=== PATIENT | male | born 1985 | race Two or more races ===

== ENCOUNTER 2021-02-24 14:59 | Emergency (ER) | payer OTHER, SELFPAY ==
[2021-02-24 15:12] VITALS: BP 133/91; PULSE 101; RESP 18; TEMP 36.5; O2SAT 97; BMI 31.0
--- NOTE | 2021-02-24 16:49 | ED.GENADULT ---
HPI - General Adult General Chief complaint: General Medical Stated complaint: stung by a bee Time Seen by Provider: 02/24/21 16:49 Source: patient Mode of arrival: ambulatory Limitations: no limitations History of Present Illness HPI narrative: 35-year-old male with nonsignificant past medical history presents the emergency department after bee sting to the right lower extremity with increased pain and swelling. Patient states he has been stung by bees many times but never had this reaction. States he woke up with increased swelling and leakage from sting site itself. Also admits to increased redness going up the leg. Denies fevers or chills denies chest pain or shortness of breath. Is an [employer] worker and was unable to go to work today. Related Data Previous Rx's Medication Instructions Recorded cephalexin 500 mg PO QID #40 cap 02/24/21 prednisone 60 mg PO DAILY 5 Days #15 tab 02/24/21 prednisone 60 mg PO DAILY 5 Days #15 tab 02/24/21 Allergies Allergy/AdvReac Type Severity Reaction Status Date / Time No Known Allergies Allergy Verified 02/24/21 15:12 Review of Systems Review of Systems: Constitutional : No Weight loss, No Fever, No Chills, No Night Sweats, No Fatigue, No Malaise ENT/Mouth : No Hearing loss, No Ear Pain, No Nasal Congestion, No Sinus Pain, No Hoarseness, No sore throat, No Rhinorrhea, No Swallowing Difficulty Eyes: No Eye Pain, No Swelling, No Redness, No Foreign Body, No Discharge, No Vision Changes Cardiovascular : No Chest Pain, No SOB, No Dyspnea on Exertion, No Orthopnea, No Edema, No Palpitations Respiratory : No Cough, No Sputum, No Wheezing, No Smoke Exposure, No Dyspnea Gastrointestinal : No Nausea, No Vomiting, No Diarrhea, No Constipation, No abdominal Pain, No Hematochezia, No Melena Genitourinary : no irregular bleeding, No Dysuria, No Urinary Frequency, No Hematuria, No Urinary Incontinence, No Urgency, No Flank Pain, No Urinary Flow Changes, No Hesitancy Musculoskeletal : No joint pain, No Myalgias, + Joint Swelling, + rash to left and edema Skin : No Skin Lesions Neuro : No Weakness, No Numbness, No Paresthesias, No Loss of Consciousness, No Dizziness, No Headache Psych : No Anxiety/Panic, No Depression, No SI/HI/AH/VH, No Social Issues, Heme/Lymph: No Bruising, No Bleeding,No Lymphadenopathy Endocrine : No Polyuria, No Polydipsia, No Temperature Intolerance [facility] Past Medical History Attestation statement: The following information was validated with the patient. Source: old records reviewed and obtained from family Medical History (Updated 02/24/21 @ 16:54 by MARY LOU Mendieta) GERD (gastroesophageal reflux disease) IBS (irritable bowel syndrome) Migraines Tachycardia Social History Social History Advance Directives: No Advance Directives Information Provided: No Physical Exam Vital Signs: Vital Signs: Last Vital Signs Temp 97.7 F 02/24/21 15:12 Pulse 101 H 02/24/21 15:12 Resp 18 02/24/21 15:12 BP 133/91 H 02/24/21 15:12 Pulse Ox 97 02/24/21 15:12 Body Mass Index 31.0 vital signs have been reviewed as normal and appeared to be correct. Blood pressure normal. Heart rate normal. Respiration rate normal. Temperature normal. Oxygen saturation normal. Appearance: Alert. Oriented X3. No acute distress. Head: Normal external exam. Normocephalic. Atraumatic. No Fish signs noted. No raccoon eyes noted Eyes: Conjunctiva and sclera normal. ENT: EAC normal. Moist mucous membranes. No drooling noted. No muffled voice noted. Neck: Normal inspection. Neck supple. FROM. No meningeal signs. CVS: Pulses normal throughout. Respiratory: No respiratory distress. Painless inspiration. No accessory muscle usage noted Abdomen: No visible injury noted. Back: Full range of motion noted. Skin: Skin warm and dry. Normal skin color. Normal skin turgor. Extremities: Extremities exhibit normal range of motion. Patient with edema noted from the right foot extending to the right posterior calf. Mild upward streaking erythema mild serosanguineous fluid coming from bee sting wound. Good distal pulses good capillary refill limb neurovascularly intact otherwise Neuro: Oriented X 3. No motor deficit. No sensory deficit. Medical Decision Making MDM Narrative Medical decision making narrative: patient's vital signs are stable and he is afebrile. Patient presenting to the ED after bee sting with increased redness and swelling to the affected limb. Signs of early cellulitis does exist no acute concern for DVT patient with mild serosanguineous fluid coming from bee sting wound itself likely due to the gross edema. Patient's limb is otherwise neurovascularly intact. Will prescribe steroids to help with inflammation as well as Keflex to help with potential early infection advised close outpatient follow-up. No acute concern for anaphylactic reaction at this time. Discharge Plan Discharge Clinical Impression: Accidental bee sting Cellulitis Qualifiers: Site of cellulitis: extremity Site of cellulitis of extremity: lower extremity Laterality: right Qualified Code(s): L03.115 - Cellulitis of right lower limb Patient Disposition: Home, Self-Care Instructions: Cellulitis (ED) Additional Instructions: You were seen in the ED after a bee sting with early signs of infection please take steroids and antibiotics as directed follow-up with your doctor symptoms get worse or return to the ED if you feel like they are getting significantly worse without improvement or if you develop a fever or shortness of breath. Prescriptions: New prednisone 20 mg tablet 60 mg PO DAILY 5 Days Qty: 15 RF: 0 cephalexin 500 mg capsule 500 mg PO QID Qty: 40 RF: 0 prednisone 20 mg tablet 60 mg PO DAILY 5 Days Qty: 15 RF: 0 Referrals: Mikel Rodriguez MD [Primary Care Provider] - 5 days Stand Alone Forms: Work/School Release Interventions: ED Discharge Assessment Last Done: 02/24/21 17:12 Discharge Date/Time: 02/24/21 17:12 Print Language: Algerian
== END 2021-02-24 17:12 | disposition home or self-care (01) ==
PROVIDERS: Emergency Provider Emergency Medicine; PCP Internal Medicine
DX: L03.115 Cellulitis of right lower limb (principal)
CPT/HCPCS: 99283

== ENCOUNTER 2021-05-11 10:01 | Emergency (ER) | payer OTHER, SELFPAY ==
[2021-05-11 10:14] VITALS: BP 141/79; PULSE 107; RESP 19; TEMP 36.6; O2SAT 97; BMI 31.6
--- NOTE | 2021-05-11 11:17 | ED.GENADULT ---
HPI - General Adult General Chief complaint: General Medical Stated complaint: swollen sore throat Time Seen by Provider: 05/11/21 11:17 Source: patient Mode of arrival: ambulatory Limitations: no limitations History of Present Illness HPI narrative: 35-year-old male who woke up this morning with a swollen sore throat. Patient is concerned because he noticed that his uvula feels weird. His looked in his mouth, and said he was very swollen in his throat. Patient has not had any other symptoms, no fevers, no cough, no runny nose, no ear pain, no myalgias, also patient has not had any sick contacts, he is vaccinated for COVID. He is able to swallow, he is able to eat, he ate cereal this morning. States there is no pain with swallowing, but he feels that his uvula is going forward when he swallows and it feels weird. Patient has a history of IBS, migraines, GERD, states that he has tachycardia and his heart rate is normally in the 90s. Onset (ago): hour(s) (4) Location: mouth Radiation: non-radiation Severity: moderate Related Data Previous Rx's Medication Instructions Recorded cephalexin 500 mg capsule 500 mg PO QID #40 cap 02/24/21 prednisone 20 mg tablet 60 mg PO DAILY 5 Days #15 tab 02/24/21 prednisone 20 mg tablet 60 mg PO DAILY 5 Days #15 tab 02/24/21 ibuprofen 800 mg tablet 800 mg PO Q8H 5 Days #15 tab 05/11/21 penicillin V potassium 500 mg 500 mg PO TID 10 Days #30 tab 05/11/21 tablet Allergies Allergy/AdvReac Type Severity Reaction Status Date / Time No Known Allergies Allergy Verified 02/24/21 15:12 Review of Systems Constitutional: Constitutional: Denies body ache(s), Denies chills, Denies fatigue, Denies fever(s), Denies headache(s), Denies malaise and Denies weakness Eyes: Eyes: Denies diplopia ENT: Denies vertigo, Denies dizziness, Denies ear discharge, Denies otalgia, Denies facial pain, Denies headache(s), Denies mouth pain, Denies nasal congestion, Denies nasal discharge, Denies post nasal drip, Denies sinus pain, Reports sore throat, Denies throat swelling and Denies tongue swelling Cardiovascular: Cardiovascular: Denies chest pain, Denies syncope, Denies leg edema, Denies lightheadedness, Denies Loss of Consciousness, Denies palpitations and Denies dyspnea Respiratory: Respiratory: Denies chest congestion, Denies cough and Denies dyspnea Gastrointestinal: Gastrointestinal: Denies abdominal pain, Denies hematochezia, Denies constipation, Denies diarrhea and Denies vomiting Musculoskeletal: Musculoskeletal: Reports no additional musculoskeletal complaints Neurologic: Denies confusion, Denies vertigo, Denies dizziness, Denies syncope, Denies headache(s) and Denies weakness Psychiatric: Psychiatric: Denies anxiety, Denies confusion and Denies depression Endocrine: Endocrine: Denies fatigue and Denies palpitations Allergic/Immunologic: Allergic/Immunologic: Denies throat swelling and Denies tongue swelling PMFSH Past Medical History Medical History GERD (gastroesophageal reflux disease) IBS (irritable bowel syndrome) Migraines Tachycardia Social History Social History Advance Directives: No Physical Exam Vital Signs: Vital Signs: Last Vital Signs Temp 98 F 05/11/21 10:14 Pulse 107 H 05/11/21 10:14 Resp 19 05/11/21 10:14 BP 141/79 H 05/11/21 10:14 Pulse Ox 97 05/11/21 10:14 Body Mass Index 31.6 Const: General: No confusion Nutritional Appearance: well nourished Orientation/consciousness: No confusion Limitations: no limitations HENMT: Head: Yes normal to inspection, Yes normocephalic and Yes atraumatic Ears: hearing grossly normal bilaterally, TM's normal bilaterally and EAC's normal General nose exam: Normal external nose present Face and sinus: Yes normal facial exam and Yes sinuses nontender Mouth: Normal oral and palatal mucosa present and tongue normal Throat: Yes uvula midline, Yes uvular edema and Yes other (exudate posterior pharynx and uvula) Eyes: Conjunctivae: conjunctivae normal Pupils: Equal, round and reactive pupils present EOM: EOMs intact bilaterally Neck: Neck: Yes full ROM, Yes no lymphadenopathy and Yes supple Resp: Effort & Inspection: normal respiratory effort and able to speak in complete sentences Auscultation: clear to auscultation bilaterally, no crackles, no rales, no rhonchi and no wheezes Cardio: Rate: tachycardic Rhythm: regular rhythm Heart sounds: S1 normal heart sound present and S2 normal heart sound present Skin: General skin exam: no rashes or lesions noted Neuro: General: No confusion Cranial nerves: Yes Equal, round and reactive pupils present Extrem: General: Yes normal to inspection and Yes full ROM Psych: Appearance: grossly normal Affect: normal affect Attitude: cooperative Thought process: Normal thought process present Course Course Course Narrative: 35-year-old male who woke up with sore throat this morning. On exam, patient is afebrile mildly tachycardic which is his baseline, patient has an erythematous posterior pharynx with exudate and erythema and swelling of his uvula. Will get strep swab, re-evaluate Reevaluation(s) Reevaluation #1: Strep positive. Will treat with penicillin, ibuprofen, saltwater gargles. Follow up with primary care provider. Medical Decision Making Lab Data Labs: Lab Results 05/11/21 Range/Units 11:41 S. pyogenes GrpA TED Positive A (Negative) Discharge Plan Discharge Clinical Impression: Strep pharyngitis Patient Disposition: Home, Self-Care Instructions: Strep Throat (ED) Additional Instructions: Your strep positive today, your contagious until you have been on antibiotics for 2 days, you may return to work on Wednesday. I have prescribed penicillin and ibuprofen to your pharmacy. Please also do saltwater gargles. Take a tsp of salt and put in a cup of warm water, and gargle and spit out the salt water. Please do this 4 times a day for the next 3 days this will really help. Please return to emergency room for any new or concerning symptoms. Prescriptions: New penicillin V potassium 500 mg tablet 500 mg PO TID 10 Days Qty: 30 RF: 0 ibuprofen 800 mg tablet 800 mg PO Q8H 5 Days Qty: 15 RF: 0 No Action prednisone 20 mg tablet 60 mg PO DAILY 5 Days Qty: 15 RF: 0 cephalexin 500 mg capsule 500 mg PO QID Qty: 40 RF: 0 prednisone 20 mg tablet 60 mg PO DAILY 5 Days Qty: 15 RF: 0 Stand Alone Forms: Work/School Release
[2021-05-11 11:52] LABS: IDNOW Serial# 9DD0AD1C; Strep A Nucleic Acid Positive (Negative)
[2021-05-11 12:11] LABS: COVID-19 Test Negative (Negative)
== END 2021-05-11 12:20 | disposition home or self-care (01) ==
PROVIDERS: Emergency Provider Emergency Medicine Emergency Medical Services; PCP Internal Medicine
DX: J02.0 Streptococcal pharyngitis (principal); Z20.822 Contact with and (suspected) exposure to COVID-19; Z79.899 Other long term (current) drug therapy
CPT/HCPCS: 36415; 87635; 87651; 99283

== ENCOUNTER 2021-10-23 11:23 | Outpatient (REF) | payer OTHER, SELFPAY ==
--- NOTE | ~2021-10-23 | XR_ITS ---
EXAMINATION: XR CERVICAL SPINE CLINICAL INFORMATION: Neck pain COMPARISON: None TECHNIQUE: 4 views of the cervical spine were obtained. Evaluation of C7-T1 is limited by overlapping soft tissue. FINDINGS: There are no prevertebral soft tissue or bony abnormalities demonstrated. No compression fractures or subluxations are identified. Alignment is maintained at the atlanto-axial articulation. The disc spaces are preserved. No endplate changes are seen. The prevertebral soft tissues are normal. The foramina are patent. XR/XR cervical spine 2V IMPRESSION: Unremarkable examination.
== END 2021-10-23 11:24 | disposition home or self-care (01) ==
LOC: HO.XRAY 11:23
PROVIDERS: PCP Internal Medicine; Visit Provider Psychiatry & Neurology Neurology
DX: M54.2 Cervicalgia (principal)
CPT/HCPCS: 72040

== ENCOUNTER 2022-10-02 13:29 | Outpatient (REF) | payer OTHER, SELFPAY ==
--- NOTE | ~2022-10-02 | MR_ITS ---
EXAMINATION: MR BRAIN WITHOUT CONTRAST CLINICAL INFORMATION: New persistent daily headache. COMPARISON: None available. TECHNIQUE: Multiplanar, multisequence imaging of the brain was performed without intravenous contrast. FINDINGS: There is no acute infarction, mass, hemorrhage, or extra-axial collection. The ventricles, sulci, and basilar cisterns are normal in size and configuration. The midline structures appear normal. The cerebellar tonsils terminate normally above the foramen magnum. The flow voids of the major intracranial arteries appear intact. The bones and extracranial soft tissues are unremarkable. There is moderate paranasal sinus mucosal thickening without fluid levels. Mastoids are clear. MR/MR head/brain wo con IMPRESSION: No acute infarct, mass lesion, intracranial hemorrhage, or evidence of hydrocephalus. Moderate paranasal sinus mucosal thickening without fluid levels.
== END 2022-10-02 13:30 | disposition home or self-care (01) ==
LOC: HO.MRI 13:29
PROVIDERS: PCP Psychiatry & Neurology Neurology; Visit Provider Psychiatry & Neurology Neurology
DX: G44.52 New daily persistent headache (NDPH) (principal)
CPT/HCPCS: 70551

== ENCOUNTER 2023-05-20 08:45 | Outpatient (AMB) | payer OTHER, SELFPAY ==
--- NOTE | 2023-05-20 08:52 | MHC.OFFVIS ---
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 States his right is worse. States symptoms come and go, has constant pain due to numbness. Reports he at times drops items due to hand weakness. This affects him at work. Patient started to use a brace as of 2 weeks ago with little relieve. No EMG done. Allergies No Known Allergies Allergy (Verified 05/20/23 08:53) Medication List - Last Reconciled 05/20/23 by Hilda Moses MD amitriptyline 100 mg PO BEDTIME gabapentin 300 mg PO DAILY ibuprofen 800 mg PO Q8H 5 days metoprolol succinate ER 50 mg PO DAILY naproxen mg PO omeprazole 20 mg PO DAILY promethazine mg PO rizatriptan mg PO HPI HPI Comments History of Present Illness Details Right numb/tingling certain positions, especially on fingertips. Pain onwrist nowadays, initially more on the fingers and palm. Wrist splints at help. Left side not as painful right. Not associated with neck pain. Dropping things. 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 No atrophy noted. The other day started having sharp pain on elbow and forearm, right. 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 MSK: Inspection reveals appropriate head and neck positioning. No pain with palpation over the neck musculature. No intrinsic hand weakness noted. No atrophy noted. Jordan test negative. Carpal compression test positive right. Tinel sign negative. Strength is 5/5 in all muscle groups tested. No increased tone noted. Neurological: Neurologic examination of the upper and lower extremities was nonfocal with intact sensation, muscle stretch reflexes and without focal motor deficits . Patiño?s negative bilaterally. Gait is non-antalgic without loss of balance. Assessment & Plan Assessment & Plan (1) Hand numbness: Code(s): R20.0 - Anesthesia of skin Plan Clinically suspect Carpal Tunnel Syndrome based on symptoms and exam. Right seems to be worse than left. Continue to wear wrist splints. We will schedule for EMG to confirm. We discussed usual management which includes conservative versus surgical treatment. Assessment and plan discussed with patient, and patient was agreeable. All questions were answered thoroughly. Hilda Moses MD, MISTI Board Certified, [place] Board of Physical Medicine and Rehabilitation (ABPMR) Board Certified, [place] Board of Electrodiagnostic Medicine (ABEM) Orders: Orders NE nerve conduction velocity Today R20.0 - Anesthesia of skin NE electromyogram (EMG) Today R20.0 - Anesthesia of skin Coding Level of Care Code New Pt Level 3 (50396) Diagnoses Hand numbness R20.0
[2023-05-20 08:53] VITALS: BMI 32.2
== END 2023-05-20 09:25 | disposition home or self-care (01) ==
PROVIDERS: PCP Psychiatry & Neurology Neurology; Visit Provider Physical Medicine & Rehabilitation
DX: R20.0 Anesthesia of skin (principal)
CPT/HCPCS: 99203

== ENCOUNTER → 2023-05-20 08:45 | Outpatient (BNVA) | payer OTHER, SELFPAY | PROVIDERS: PCP Psychiatry & Neurology Neurology; Visit Provider Physical Medicine & Rehabilitation ==

== ENCOUNTER 2023-07-22 14:07 | Outpatient (REF) | payer OTHER, SELFPAY ==
--- NOTE | 2023-07-22 14:09 | EMG_ITS ---
Chief complaint: Wrist pain, tingling in fingers, right worse than left Reason for referral: Evaluate for Carpal Tunnel Syndrome Procedure done: Bilateral upper extremities NCS/EMG Precautions and/or limitations: None The limb temperature was monitored continuously and remained between 32-36 degrees C during the performance of the NCS. Nerve Conduction Studies Anti Sensory Summary Table ?Stim Site NR Onset (ms) Norm Onset (ms) Peak (ms) Norm Peak (ms) O-P Amp (?V) Norm O-P Amp Site1 Site2 Delta-0 (ms) Dist (cm) Osbaldo (m/s) Norm Osbaldo (m/s) Left Median Anti Sensory (2nd Digit) Wrist ? 2.9 3.6 <3.6 42.7 >10 Wrist 2nd Digit 2.9 14.0 48 Right Median Anti Sensory (2nd Digit) Wrist ? 3.5 4.3 <3.6 36.3 >10 Wrist 2nd Digit 3.5 14.0 40 Right Radial Anti Sensory (Thumb) Forearm ? 1.6 2.2 <3.1 25.4 Forearm Thumb 1.6 0.0 Left Ulnar Anti Sensory (5th Digit) Wrist ? 2.1 2.9 <3.7 17.3 >15.0 Wrist 5th Digit 2.1 14.0 67 Right Ulnar Anti Sensory (5th Digit) Wrist ? 2.3 2.9 <3.7 33.8 >15.0 Wrist 5th Digit 2.3 14.0 61 Motor Summary Table ?Stim Site NR Onset (ms) Norm Onset (ms) O-P Amp (mV) Norm O-P Amp iAmp (mV) Amp (1st) (%) Site1 Site2 Delta-0 (ms) Dist (cm) Osbaldo (m/s) Norm Osbaldo (m/s) Left Median Motor (Abd Poll Brev) Wrist ? 3.9 <3.9 12.1 >4.5 14.0 100.0 Elbow Wrist 4.1 21.0 51 >45 Elbow ? 8.0 10.2 12.1 84.3 Right Median Motor (Abd Poll Brev) Wrist ? 4.5 <3.9 10.8 >4.5 13.4 100.0 Elbow Wrist 4.0 21.0 53 >45 Elbow ? 8.5 8.2 10.0 75.9 Left Ulnar Motor (Abd Dig Minimi) Wrist ? 2.9 <3.0 8.9 >5 10.3 100.0 B Elbow Wrist 3.2 20.0 63 >45 B Elbow ? 6.1 8.7 10.3 97.8 A Elbow B Elbow 1.6 10.0 62 >45 A Elbow ? 7.7 8.2 9.8 92.1 Right Ulnar Motor (Abd Dig Minimi) Wrist ? 3.0 <3.0 10.0 >5 13.5 100.0 B Elbow Wrist 3.8 19.0 50 >45 B Elbow ? 6.8 10.5 13.9 105.0 A Elbow B Elbow 1.8 10.0 56 >45 A Elbow ? 8.6 10.4 14.1 104.0 Comparison Summary Table ?Stim Site NR Peak (ms) Norm Peak (ms) P-T Amp (?V) Site1 Site2 Delta-P (ms) Norm Delta (ms) Left Median/Radial Dig I Comparison (Digit 1 - 10cm) Median ? 3.2 <2.9 62.3 Median Radial 0.0 Radial ? 3.2 <2.8 58.3 EMG ?Side Muscle Nerve Root Ins Act Fibs Psw Amp Dur Poly Recrt Int Pat Comment Right 1stDorInt Ulnar C8-T1 Nml Nml Nml Nml Nml 0 Nml Complete Right FlexCarRad Median C6-7 Nml Nml Nml Nml Nml 0 Nml Complete Right Biceps Musculocut C5-6 Nml Nml Nml Nml Nml 0 Nml Complete Right Triceps Radial C6-7-8 Nml Nml Nml Nml Nml 0 Nml Complete Right Deltoid Axillary C5-6 Nml Nml Nml Nml Nml 0 Nml Complete Left 1stDorInt Ulnar C8-T1 Nml Nml Nml Nml Nml 0 Nml Complete Left FlexCarRad Median C6-7 Nml Nml Nml Nml Nml 0 Nml Complete Left Biceps Musculocut C5-6 Nml Nml Nml Nml Nml 0 Nml Complete Left Triceps Radial C6-7-8 Nml Nml Nml Nml Nml 0 Nml Complete Left Deltoid Axillary C5-6 Nml Nml Nml Nml Nml 0 Nml Complete FINDINGS: Right median motor nerve showed prolonged distal latency, normal amplitude and normal conduction velocity. Right median sensory nerve showed prolonged peak latency. All other nerves tested were within normal. Concentric needle EMG was performed in selected muscles of the bilateral upper extremities. Study did not reveal signs of electric abnormalities as shown in the table below. IMPRESSION: 1. This is an abnormal study. 2. There is electrodiagnostic evidence for right moderate-severe median neuropathy at the wrist, consistent with carpal tunnel syndrome. 3. There is no electrodiagnostic evidence for ulnar neuropathy, brachial plexopathy, or cervical radiculopathy. 4. There is no electrodiagnostic evidence for left median neuropathy at the wrist. CLINICAL COMMENT: Will refer to Dr. Wilson for consideration of surgery. Thank you for your kind referral. Hilad Moses MD, MISTI Board Certified, [place] Board of Physical Medicine and Rehabilitation (ABPMR) Board Certified, [place] Board of Electrodiagnostic Medicine (ABEM) CODIN [id number] x2 MTDD
== END 2023-07-22 14:08 | disposition home or self-care (01) ==
LOC: HO.NEURO 14:07
PROVIDERS: PCP Internal Medicine; Visit Provider Physical Medicine & Rehabilitation
DX: R20.0 Anesthesia of skin (principal)
CPT/HCPCS: 95886; 95911

== ENCOUNTER → 2023-07-22 14:09 | Outpatient (BNV) | payer OTHER, SELFPAY | PROVIDERS: PCP Internal Medicine; Visit Provider Physical Medicine & Rehabilitation | DX: G56.11 Other lesions of median nerve, right upper limb (principal); G56.03 Carpal tunnel syndrome, bilateral upper limbs; M79.642 Pain in left hand | CPT/HCPCS: 95886; 95911 ==

== ENCOUNTER 2023-09-20 13:44 | Outpatient (AMB) | payer OTHER, SELFPAY ==
[2023-09-20 14:05] VITALS: BMI 32.2
--- NOTE | 2023-09-20 14:05 | MHC.OFFVIS ---
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 EMG done on 07/22/23. States his right is worse. States symptoms come and go, has constant pain due to numbness. Reports he at times drops items due to hand weakness. This affects him at work. Patient started to use a brace with little relieve. Last seen with Dr. Diop who referred patient to discuss surgery. 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 He was last seen by Dr. Diop who referred him to our office to discuss surgical intervention. He also had an EMG study on 07/22/23. He currently states he has pain, numbness and tingling in his bilateral hands which is worse on his right hand. He also c/o weakness and occasionally drops items from her hand which is affecting her work. He has been using a brace with mild relief. He does not have a history of diabetes. 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 Tenderness over the carpal canal. Numbness and tingling over the median nerve distribution of the right hand. Able to make a full fist and fully extend all fingers. Positive Tinel's. Results Reviewed Results Reviewed: IMPRESSION: 1. This is an abnormal study. 2. There is electrodiagnostic evidence for right moderate-severe median neuropathy at the wrist, consistent with carpal tunnel syndrome. 3. There is no electrodiagnostic evidence for ulnar neuropathy, brachial plexopathy, or cervical radiculopathy. 4. There is no electrodiagnostic evidence for left median neuropathy at the wrist. Assessment & Plan Assessment & Plan (1) Carpal tunnel syndrome of right wrist: Code(s): G56.01 - Carpal tunnel syndrome, right upper limb Plan We discussed options which include conservative vs operative treatment. Since the patient has been symptomatic for several months and it is impacting their daily life, the decision was made to undergo right carpal tunnel release. We discussed risk, benefits and alternatives. Risk including but not limited to infection, weakness, stiffness, ongoing numbness or tingling. The patient does understand all this and would like to proceed with right carpal tunnel release with Dr. Wilson. They will be booked accordingly. Patient Instructions: Scribed for Emma Vo PA-C, by Dick Denise manager medical affairs, on 09/20/2023 at 2:00 PM RONY. Emma Kruse PA-C, have personally reviewed and agree with the information entered by the scribe. Coding Level of Care Code Est Pt Level 3 (55892) Diagnoses Carpal tunnel syndrome of right wrist G56.01
== END 2023-09-20 14:38 | disposition home or self-care (01) ==
PROVIDERS: PCP Internal Medicine; Visit Provider Physician Assistant
DX: G56.01 Carpal tunnel syndrome, right upper limb (principal)
CPT/HCPCS: 99214

== ENCOUNTER → 2023-09-20 13:44 | Outpatient (BNVA) | payer OTHER, SELFPAY | PROVIDERS: PCP Internal Medicine; Visit Provider Physician Assistant | DX: G56.01 Carpal tunnel syndrome, right upper limb (principal) | CPT/HCPCS: 99212 ==

== ENCOUNTER 2023-10-25 20:20 | Emergency (ER) | payer SELFPAY ==
--- NOTE | ~2023-10-25 | XR_ITS ---
EXAMINATION: XR CHEST CLINICAL INFORMATION: Chest pain. COMPARISON: Chest radiograph dated 05/10/2019. TECHNIQUE: Frontal view of the chest was obtained. FINDINGS: The trachea is in normal anatomic position. Heart size is normal. The lungs are clear. Pleural spaces are clear. No pneumothorax. No acute osseous abnormality. XR/XR chest 1V IMPRESSION: No acute cardiopulmonary disease. Stable appearance of the heart and lungs.
--- NOTE | 2023-10-25 20:22 | ECG_ITS ---
Test Reason : elevated hr Blood Pressure : / mmHG Vent. Rate : 137 BPM Atrial Rate : 137 BPM P-R Int : 132 ms QRS Dur : 068 ms QT Int : 276 ms P-R-T Axes : 053 055 017 degrees QTc Int : 416 ms Sinus tachycardia Otherwise normal ECG When compared with ECG of 10-MAY-2019 01:52, Vent. rate has increased BY 52 BPM Referred By: Dick Johnson Electronically Signed By:ROMAIN CAMPBELL MD
[2023-10-25 20:45] LABS: MANUAL DIFF FLAG NO
[2023-10-25 20:46] LABS: Basophils Percent Auto 0.4 % (0-2); Eosinophils Absolute Auto 0.1 X10*3/uL (0.0-0.4); Eosinophils Percent Auto 0.5 % (0-4); Hematocrit 42.4 % (42.0-52.0); Hemoglobin 15.6 g/dl (14.0-18.0); Imm Gran Abs Auto 0.06 X10*3/uL (0.00-0.03); Imm Gran Pct Auto 0.6 % (0.0-0.4); Lymphocytes Absolute Auto 1.2 X10*3/uL (1.2-4.9); Lymphocytes Percent Auto 12.2 % (20-40); Mean Corpuscular HGB Conc 36.8 g/dl (31.0-36.0); Mean Corpuscular Hemoglobin 31.3 pg (27.0-33.0); Mean Platelet Volume 9.4 fL (9.4-12.4); Monocytes Absolute Auto 1.1 X10*3/uL (0.1-1.2); Monocytes Percent Auto 10.9 % (2-11); Neutrophils Absolute Auto 7.5 x10*3/uL (2.0-8.3); Neutrophils Percent Auto 75.4 % (45-73); Platelet Count 302 X10*3/uL (160-400); Red Blood Count 4.99 X10*6/uL (4.60-5.80); Red Cell Distribution Width 12.1 % (11.0-16.0)
[2023-10-25 20:51] VITALS: BP 114/72; PULSE 139; RESP 20; TEMP 37.8; O2SAT 99; BMI 31.7
[2023-10-25 20:53] LABS: Prothrombin Time 12.3 SEC (11.1-13.3)
[2023-10-25 20:55] LABS: Partial Thromboplastin Time 29.6 SEC (26.0-36.8)
[2023-10-25 21:04] LABS: Alanine Aminotransferase 34 U/L (0-40); Albumin Level 4.4 g/dL (3.5-5.0); Alkaline Phosphatase 64 U/L (39-117); Anion Gap 15 (12-20); Aspartate Amino Transferase 29 U/L (5-37); Bilirubin Total 0.9 mg/dL (0.0-1.0); Blood Urea Nitrogen 17 mg/dL (9-16); Calcium 9.4 mg/dL (8.4-10.2); Carbon Dioxide 26 mmol/L (22-29); Chloride 102 mmol/L (96-108); Creatinine Clr Calc Pharmacy 100.2; Estimated Glomerular Filt Rate > 60; Glucose Random 94 mg/dL (60-115); Potassium 3.6 mmol/L (3.3-5.1); Sodium 139 mmol/L (135-145); Total Protein 8.1 g/dL (6.5-8.0)
[2023-10-25 21:05] LABS: B Type Natriuretic Peptide < 10 pg/mL (<100)
[2023-10-25 21:07] LABS: Troponin-I High Sensitivity < 2.7 ng/L (<3.5-35.0)
[2023-10-25 21:24] LABS: Influenza A PCR NEGATIVE (Negative); Influenza B PCR POSITIVE (Negative); Resp Syncy Virus RNA Qual PCR NEGATIVE (Negative); SARS COV2 PCR INHOUSE NEGATIVE (Negative)
--- NOTE | 2023-10-26 00:19 | ED_ITS ---
HPI - Chest Pain General Chief Complaint: Chest Pain Stated Complaint: elevated heart rate 140 recorded at home Time Seen by Provider: 10/26/23 00:07 Source: patient Mode of arrival: ambulatory History of Present Illness HPI narrative: 37-year-old male with history of tachycardia and currently taking Lopressor for this condition comes in with positive sick contacts from his family of headaches, nasal congestion and then today states that he noticed his heart rate was 137. On review of triage note patient also reports chest pain and shortness of breath that he relates to the fact that he is tachycardic. Related Data Home Medications Medication Instructions Recorded Confirmed amitriptyline 100 mg tablet 100 mg PO BEDTIME 05/20/23 05/20/23 gabapentin 300 mg capsule 300 mg PO DAILY 05/20/23 05/20/23 metoprolol succinate 50 mg 50 mg PO DAILY 05/20/23 05/20/23 tablet,extended release 24 hr naproxen 375 mg tablet mg PO 05/20/23 05/20/23 omeprazole 20 mg capsule,delayed 20 mg PO DAILY 05/20/23 05/20/23 release promethazine 25 mg tablet mg PO 05/20/23 05/20/23 rizatriptan 10 mg tablet mg PO 05/20/23 05/20/23 Previous Rx's Medication Instructions Recorded ibuprofen 800 mg tablet 800 mg PO Q8H 5 days #15 tabs 05/11/21 oseltamivir 75 mg capsule (Tamiflu) 75 mg PO BID 5 days #10 caps 10/26/23 Allergies Allergy/AdvReac Type Severity Reaction Status Date / Time No Known Allergies Allergy Verified 10/25/23 20:51 Review of Systems 2 Review of Systems: Pertinent positives and negatives as stated in HPI PMFSH Past Medical History Source: nursing notes reviewed Medical History Carpal tunnel syndrome of right wrist Migraines GERD (gastroesophageal reflux disease) IBS (irritable bowel syndrome) Tachycardia Social History Social History Advance Directives: No Advance Directives Information Provided: No Current occupational status: employed 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 GENERAL: Well developed, well nourished, in no acute distress. HEAD: Normocephalic/atraumatic EYES: PERRLA, EOMI EARS: Ext canals without abnormality, TMs non-bulging and non-erythematous NOSE: Nares patent bilateral OROPHARYNX: no oral lesions noted, posterior pharynx clear and non-erythematous without noted tonsillar enlargement/erythema/exudates NECK: Supple, no adenopathy LUNGS: Normal breath sounds. No adventitious sounds or accessory muscle use. SpO2<99> CARDIOVASCULAR: Regular rate and rhythm without noted murmurs ABDOMEN: Soft, non-tender, non-distended with bowel sounds. MUSCULOSKELETAL: No tenderness, deformities, or effusions noted on gross inspection. EXTREMITIES: No cyanosis, clubbing or edema. SKIN: Inspection of the skin reveals no rashes NEUROLOGIC: Alert and oriented x 4. Strength and sensation to light touch were grossly intact x 4. Medical Decision Making Medical Decision Making MDM Narrative: 37-year-old male with history and clinical presentation, DDX: Anxiety, viral illness, lower clinical suspicion for acute cardiopulmonary etiology, no clinical suspicion for PE. I reviewed all investigations and hematologic in seizure negative for leukocytosis/anemia/thrombocytopenia. Coagulation studies are within normal limits. Chemistry indices are negative for IVET/electrolyte or liver enzyme derangements, high sensitivity troponin is undetectable and BNP is undetectable. Viral testing positive for influenza A. Chest x-ray negative for infiltrate or venous congestion otherwise my interpretation is in agreement with radiology's impression. I discussed all results and findings with the patient at bedside, he will be started on Tamiflu and given Tylenol and ibuprofen as I do suspect he has an underlying fever that is contributing to the tachycardia. On re-evaluation heart rate-118 but I suspect that this is contributed by underlying fever and patient is still felt to be stable for discharge and he will take his medication in the morning for his underlying tachycardic diagnosis. He is also discharged on course of Tamiflu. Differential Diagnosis Differential Diagnoses: The differential diagnosis associated with the presentation includes Please see the discussion above Admission/Observation Consideration of admission/observation: Escalation of care including admission/observation considered Please see the discussion above Lab Data MDM Lab Attestation statement: I reviewed the patient's lab results. Please see the discussion above 10/25/23 20:31 10/25/23 20:31 Labs: Lab Results 10/25/23 Range/Units 20:31 WBC 10.0 (4.8-10.8) X10*3/uL RBC 4.99 (4.60-5.80) X10*6/uL Hgb 15.6 (14.0-18.0) g/dl Hct 42.4 (42.0-52.0) % MCV 85.0 (80.0-98.0) fL MCH 31.3 (27.0-33.0) pg MCHC 36.8 H (31.0-36.0) g/dl RDW 12.1 (11.0-16.0) % Plt Count 302 (160-400) X10*3/uL MPV 9.4 (9.4-12.4) fL Immature Gran % (Auto) 0.6 H (0.0-0.4) % Neut % (Auto) 75.4 H (45-73) % Lymph % (Auto) 12.2 L (20-40) % Stokes % (Auto) 10.9 (2-11) % Eos % (Auto) 0.5 (0-4) % Baso % (Auto) 0.4 (0-2) % Lymph # (Auto) 1.2 (1.2-4.9) X10*3/uL Stokes # (Auto) 1.1 (0.1-1.2) X10*3/uL Eos # (Auto) 0.1 (0.0-0.4) X10*3/uL Baso # (Auto) 0.0 (0.0-0.2) X10*3/uL Abs Immat Gran (auto) 0.06 H (0.00-0.03) X10*3/uL Absolute Neuts (auto) 7.5 (2.0-8.3) x10*3/uL Absolute Nucleated RBC 0.000 (0.0-0.012) X10*3/uL Nucleated RBC % (auto) 0.0 (0.0-0.2) /100WBC PT 12.3 (11.1-13.3) SEC INR 1.0 (0.9-1.1) APTT 29.6 (26.0-36.8) SEC Sodium 139 (135-145) mmol/L Potassium 3.6 (3.3-5.1) mmol/L Chloride 102 (96-108) mmol/L Carbon Dioxide 26 (22-29) mmol/L Anion Gap 15 (12-20) BUN 17 H (9-16) mg/dL Creatinine 1.15 (0.5-1.4) mg/dL Estim Creat Clear Calc 100.2 Estimated GFR > 60 Random Glucose 94 (60-115) mg/dL Calcium 9.4 (8.4-10.2) mg/dL Total Bilirubin 0.9 (0.0-1.0) mg/dL AST 29 (5-37) U/L ALT 34 (0-40) U/L Alkaline Phosphatase 64 (39-117) U/L Troponin I High Sens < 2.7 (<3.5-35.0) ng/L B-Natriuretic Peptide < 10 (<100) pg/mL Total Protein 8.1 H (6.5-8.0) g/dL Albumin 4.4 (3.5-5.0) g/dL Influenza Type A (PCR) NEGATIVE (Negative) Influenza Type B (PCR) POSITIVE A (Negative) RSV RNA Qual (PCR) NEGATIVE (Negative) SARS-CoV-2 RNA (RT-PCR) NEGATIVE (Negative) Independent Interpretation I performed an independent interpretation of an: EKG Interpretation: Sinus tachycardia, HR-137, no STEMI, TN/QRS/QTC is within normal limits. Radiology Impression Discussion of test interpretation with radiology: I have reviewed the radiologist's reading. Radiologist Impression: Please see the discussion above External Record Review External record reviewed: Outpatient record, Prior outpatient labs and Prior outpatient radiology Chronic Conditions Tachycardia Critical Care Time Critical Care Time Critical Care Time: Yes Total Critical Care Time: 30 Attestation: I personally attest to this time spent taking care of the patient. Discharge Plan Discharge Clinical Impression: Viral syndrome, Influenza A Patient Disposition: Home, Self-Care Instructions: Influenza (ED), Viral Syndrome (ED) Additional Instructions: 1. Resume all home medications as prescribed. Continue stay well hydrated and I highly recommend that you use Tylenol ibuprofen throughout the day as you are likely experiencing some mild temperature elevations which are contributing to your tachycardia. 2. Please complete the course of Tamiflu this is treatment for influenza a which you are being diagnosed with. Return to the ER for any worsening symptoms. Prescriptions: New oseltamivir [Tamiflu] 75 mg capsule 75 mg PO BID 5 Days Qty: 10 0RF No Action ibuprofen 800 mg tablet 800 mg PO Q8H 5 Days Qty: 15 0RF naproxen 375 mg tablet PO omeprazole 20 mg capsule,delayed release(DR/EC) 20 mg PO DAILY promethazine 25 mg tablet PO amitriptyline 100 mg tablet 100 mg PO BEDTIME metoprolol succinate 50 mg tablet extended release 24 hr 50 mg PO DAILY rizatriptan 10 mg tablet PO gabapentin 300 mg capsule 300 mg PO DAILY Referrals: Mikel Rodriguez III, MD [Primary Care Provider] -
[2023-10-26 00:21] VITALS: BP 123/76; PULSE 118; RESP 18; TEMP 36.8; O2SAT 96
[2023-10-26] MEDS: Ibuprofen 400 MG TABLET PO (00:38)
[2023-10-26] MEDS: Acetaminophen 325 MG TABLET 975 MG PO (00:38)
[2023-10-26] MEDS: Oseltamivir Phosphate 75 MG CAPSULE PO (00:38)
== END 2023-10-26 00:51 | disposition home or self-care (01) ==
PROVIDERS: Physician Assistant; Emergency Provider Student in an Organized Health Care Education/Training Program; PCP Internal Medicine
DX: J10.1 Influenza due to other identified influenza virus with other respiratory manifestations (principal); B34.9 Viral infection, unspecified; R06.02 Shortness of breath; R07.89 Other chest pain; R00.0 Tachycardia, unspecified; Z11.52 Encounter for screening for COVID-19; Z20.822 Contact with and (suspected) exposure to COVID-19; Z79.899 Other long term (current) drug therapy
CPT/HCPCS: 0241U; 36415; 71045; 80053; 83880; 84484; 85025; 85610; 85730; 93005; 99283; 99285

== ENCOUNTER → 2023-10-25 20:22 | Outpatient (BNV) | payer SELFPAY | PROVIDERS: Emergency Provider Student in an Organized Health Care Education/Training Program; PCP Internal Medicine; Visit Provider Internal Medicine Cardiovascular Disease | DX: R00.0 Tachycardia, unspecified (principal) | CPT/HCPCS: 93010 ==

== ENCOUNTER 2024-04-19 10:09 | Outpatient (AMB) | payer OTHER, SELFPAY ==
[2024-04-19 10:14] VITALS: BMI 31.6
--- NOTE | 2024-04-19 10:14 | MHC.OFFVIS ---
Vital Signs 04/19/24 10:14 Height 5 ft 9 in Weight 214 lb BMI 31.6 Intake Visit Reasons: Preop RT CTR 04/27/24 AR Intake Note: Farhad is a 38 year old right hand dominant male who presents today for a preoperative appointment, booked for RT CTR 04/27/24 Allergies No Known Allergies Allergy (Verified 04/19/24 10:15) HPI HPI Preop RT CTR 04/27/24 AR: Details: Patient is a 38-year-old male who presents for preoperative evaluation for right carpal tunnel release scheduled for 04/27/[address] Wilson. Today, the patient reports that his numbness and tingling has worsened, but it is still intermittent, but daily, and worse at night. The patient also reports that he is experiencing some weakness in his right hand, and then he feels the muscles controlling his thumb on the right hand are weaker than they are in the left. Patient inquires as to how long he will need to be out of work after surgery, as he works at [employer] and they do not have light duty and can not accommodate a 2 lb weight No other acute complaints or concerns at this time. 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 Slightly weakened APB muscle belly firing on the right when compared to the left good finger cross. Vascular: Capillary refill brisk. ROM: Patient can make a fist and extend all their digits. Skin: No lacerations or abrasions noted. General: No ecchymosis. No erythema or evidence of infection Results Reviewed Results Reviewed: IMPRESSION: 1. This is an abnormal study. 2. There is electrodiagnostic evidence for right moderate-severe median neuropathy at the wrist, consistent with carpal tunnel syndrome. 3. There is no electrodiagnostic evidence for ulnar neuropathy, brachial plexopathy, or cervical radiculopathy. 4. There is no electrodiagnostic evidence for left median neuropathy at the wrist. EMG performed by Dr. Diop on 07/22/2023 Assessment & Plan Assessment & Plan (1) Carpal tunnel syndrome of right wrist: Code(s): G56.01 - Carpal tunnel syndrome, right upper limb Category: Medical Plan Carpal tunnel syndrome, right Plan is to proceed with previously scheduled surgery on 04/27/[address] Wilson Patient is amenable to this plan 1. Left hand numbness and tingling Symptoms intermittent, but daily, worse at night Patient reports that symptoms are more severe on the right Patient is informed that EMG and nerve conduction study did not show any evidence of carpal tunnel syndrome on the left, therefore we can not proceed with surgery in the immediate postoperative. However, if patient continues to experience symptoms in the future, we can have a repeat EMG and nerve conduction study done to once again reassess the health of the nerves of the left upper extremity Patient is amenable to this plan Patient booked for surgery on 04/27/[address] Wilson, but can be seen sooner with any acute concerns Coding Level of Care Code Est Pt Level 3 (73707) Diagnoses Carpal tunnel syndrome of right wrist G56.01
== END 2024-04-19 10:33 | disposition home or self-care (01) ==
PROVIDERS: PCP Internal Medicine
DX: G56.01 Carpal tunnel syndrome, right upper limb (principal)
CPT/HCPCS: 99214

== ENCOUNTER → 2024-04-19 10:09 | Outpatient (BNVA) | payer OTHER, SELFPAY | PROVIDERS: PCP Internal Medicine | DX: G56.01 Carpal tunnel syndrome, right upper limb (principal) | CPT/HCPCS: 99212 ==

== ENCOUNTER 2024-04-27 08:25 | Day surgery (SDC) | payer OTHER, SELFPAY ==
--- NOTE | 2024-04-27 07:49 | W.PM.OPN ---
Operative Note Operative Note Date of Service: 04/27/24 Narrative: Preop diagnosis: 1. Right Carpal tunnel syndrome Postop diagnosis: same Procedure: 1. Right Carpal tunnel release Surgeon: iCnthia Wilson MD Fish And Wildlife Technician: None Anesthesia: local block using 1% lidocaine with epinephrine Findings: Thickened transverse carpal ligament. EBL: Less than 5 mL Specimens: None Complications: None Disposition: Brought to recovery room in stable condition Plan: Follow-up for 10-14 days for wound check and suture removal Indications: The patient is 38 years old, with right carpal tunnel syndrome that has been unresponsive to nonoperative management. The risks and benefits of operative treatment including but not limited to risk of damage to blood vessels, nerves, tendons, infection, persistent pain, persistent symptoms, or possible need for additional surgery were discussed with the patient and the patient wishes to proceed with surgery. Procedure: Once consent was obtained a local block was performed using a combination of 1% lidocaine with epinephrine. The patient was then brought back to the operating suite and placed on the operative table in supine position. The right upper extremity was prepped and draped in a standard surgical fashion. Once assured that we had a good block, a 2.0 cm longitudinal incision was made centered over the carpal tunnel. The incision was made through the skin to the subcutaneous tissues using a #15 blade. Dissection was made down to the level of the transverse carpal ligament with care being taken to protect the palmar cutaneous nerve. Once the transverse carpal ligament was clearly visualized, a longitudinal incision was made in the transverse carpal ligament 1st using a #15 blade, then using tenotomy scissors under direct visualization. Care was taken to look for and protect the motor branch of the median nerve when seen in this area. Once satisfied with our carpal tunnel release the wound was copiously irrigated with normal saline and hemostasis was obtained with a brief period of local pressure. The skin edges were reapproximated with some 5.0 nylon suture material and a sterile dressing was applied. The patient appears to have tolerated the procedure well and with no complications. All digits were well vascularized at the conclusion of the case.
[2024-04-27 08:59] VITALS: BMI 32.5
--- NOTE | 2024-04-27 10:31 | MHC.SHP ---
Pre-Procedural Eval Section A - 24 Hr Update-Section A only Date of Service: 04/27/24 The patient is an INPATIENT: No Changes since office visit: No Cold of Flu in the past 2 weeks, No New Medical Problems, No Changes in Medication and No Patient answered all questions The patient has been examined within 24 hours of the surgical procedure. The History & Physical has been completed within 30 days and I have reviewed it.: Yes Section B - Complete if H&P > 30 days Chief Complaint: Carpal tunnel syndrome, right upper limb Allergies: Allergies Allergy/AdvReac Type Severity Reaction Status Date / Time No Known Allergies Allergy Verified 04/19/24 10:15 Plan Diagnosis/Plan: Unchanged I have reviewed the history and physical and performed a pertinent physical examination on my patient. No changes have occurred unless specified. Time Spent With Patient Time: Total time managing care of this patient today ____ minutes.
[2024-04-27 11:03] VITALS: BP 119/75; PULSE 99; RESP 17; TEMP 36.7
== END 2024-04-27 11:10 | disposition home or self-care (01) ==
PROVIDERS: PCP Internal Medicine; Visit Provider Orthopaedic Surgery
PROC: (CPT 64721; principal; 2024-04-27 09:50)
DX: G56.01 Carpal tunnel syndrome, right upper limb (principal); R20.0 Anesthesia of skin; R20.2 Paresthesia of skin; G43.909 Migraine, unspecified, not intractable, without status migrainosus; R00.0 Tachycardia, unspecified; K21.9 Gastro-esophageal reflux disease without esophagitis
CPT/HCPCS: 64721; J0171

== ENCOUNTER → 2024-04-27 08:25 | Outpatient (BNV) | payer OTHER, SELFPAY | PROVIDERS: PCP Internal Medicine; Visit Provider Orthopaedic Surgery | DX: G56.01 Carpal tunnel syndrome, right upper limb (principal) | CPT/HCPCS: 64721 ==

== ENCOUNTER 2024-05-10 10:02 | Outpatient (AMB) | payer OTHER, SELFPAY ==
--- NOTE | 2024-05-10 10:14 | A.OFFVIS_ITS ---
Vital Signs 05/10/24 10:15 Height 5 ft 9 in Weight 220 lb BMI 32.5 Handedness Right Intake Visit Reasons: PO RT CTR 04/27/24 AR Intake Note: Farhad is a 38 year old right hand dominant male who presents today post operatively s/p Right Carpal Tunnel Release DOS: 05/04/24. Patient reports the night after his procedure he had some mild numbness and tingling but expresses since then it has resolved. He expresses depending on the way he picks up his cell phone he gets pain on the volar aspect of his thumb and at base of thumb. Sutures removed and steri strips applied. Allergies No Known Allergies Allergy (Verified 05/10/24 10:15) HPI HPI PO RT CTR 04/27/24 AR: Details: Patient is a 38-year-old male who presents for postoperative evaluation status post right carpal tunnel release DOS 04/27/2024. Today, the patient reports that he is feeling very well, and is not experiencing any numbness or tingling in his right hand. Patient reports no concerns with the incision site, and states that there has been no erythema, drainage, or other evidence of infection. Patient does report that he is experiencing some soreness on both the radial and ulnar volar aspects of the right wrist since surgery, but states that this is improving. Of note, the patient states that he is still experiencing some intermittent numbness and tingling in the left hand, but is aware that the EMG did not show any evidence of neuropathy. No other acute complaints or concerns this time. 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 Good APB muscle firing and good finger cross. Vascular: Capillary refill brisk. Pain: Patient endorses very mild tenderness to palpation to the hook of the hamate and triquetrum of the right wrist ROM: Patient can make a fist and extend all their digits. Skin: Well-healing and well-approximated incision site in the volar right wrist noted No evidence of infection General: No ecchymosis. No erythema or evidence of infection. Assessment & Plan Assessment & Plan (1) Carpal tunnel syndrome of right wrist: Code(s): G56.01 - Carpal tunnel syndrome, right upper limb Category: Medical (2) Numbness and tingling in left hand: Code(s): R20.0 - Anesthesia of skin; R20.2 - Paresthesia of skin Category: Medical Plan 1. Right carpal tunnel syndrome status post carpal tunnel release DOS 04/27/2024 Patient appears to be recovering well postoperatively Patient is educated about the typical recovery course At this time, patient is informed that he will not require any further acute follow-up with us, as he appears to be recovering very well postoperatively Patient is educated about pillar pain, that this is a common side effect of carpal tunnel release, and this will likely resolve itself with continue work on range of motion and time Patient is amenable to this 2. Numbness and tingling of the left hand Symptoms intermittent, not daily Patient is informed that due to negative EMG, there is no acute surgical intervention indicated on the left at this time Patient is informed that if symptoms are still bothering him in June we July of this year, he can call to make a follow-up appointment so a repeat EMG can be ordered Patient is amenable to this plan Patient will follow-up as needed with any acute concerns Coding Level of Care Code Global (00494) Diagnoses Carpal tunnel syndrome of right wrist G56.01 Numbness and tingling in left hand R20.0; R20.2
[2024-05-10 10:15] VITALS: BMI 32.5
== END 2024-05-10 10:39 | disposition home or self-care (01) ==
PROVIDERS: PCP Internal Medicine
DX: G56.01 Carpal tunnel syndrome, right upper limb (principal); R20.0 Anesthesia of skin; R20.2 Paresthesia of skin
CPT/HCPCS: 99024

== ENCOUNTER → 2024-05-10 10:02 | Outpatient (BNVA) | payer OTHER, SELFPAY | PROVIDERS: PCP Internal Medicine | DX: Z47.89 Encounter for other orthopedic aftercare (principal); Z98.890 Other specified postprocedural states | CPT/HCPCS: 99212 ==

== ENCOUNTER 2024-06-29 02:01 | Emergency (ER) | payer OTHER, SELFPAY ==
[2024-06-29 02:02] VITALS: BP 151/96; PULSE 115; RESP 18; TEMP 36.3; O2SAT 99; BMI 32.2
[2024-06-29 02:32] LABS: IDNOW Serial# 08D9AD1C; Strep A Nucleic Acid Positive (Negative)
[2024-06-29 04:00] VITALS: BP 109/76; PULSE 108; RESP 24; TEMP 36.7; O2SAT 98
--- NOTE | 2024-06-29 06:30 | ED.URI ---
HPI - URI/Sore Throat General Chief Complaint: Upper Respiratory Symptoms Stated Complaint: Sore Throat Time Seen by Provider: 06/29/24 06:30 Source: patient Mode of arrival: ambulatory Limitations: no limitations History of Present Illness ED Provider: Dr. Isidro Schwartz HPI Narrative: 38-year-old male who presents emergency department for evaluation of sore throat times 3 weeks, worse x3 days with episode of shortness of breath prior to coming to the emergency department. Patient states he has had difficulty swallowing for proximally 3 weeks but this has gotten significantly worse over the past several days. He denied fever, chills, chest pain, shortness of breath. He has no difficulty swallowing his secretions. Related Data Home Medications ?Medication ?Instructions ?Recorded ?Confirmed amitriptyline 100 mg tablet 100 mg PO BEDTIME 05/20/23 05/20/23 gabapentin 300 mg capsule 300 mg PO DAILY 05/20/23 05/20/23 metoprolol succinate 50 mg 50 mg PO DAILY 05/20/23 05/20/23 tablet,extended release 24 hr naproxen 375 mg tablet mg PO 05/20/23 05/20/23 omeprazole 20 mg capsule,delayed 20 mg PO DAILY 05/20/23 05/20/23 release promethazine 25 mg tablet mg PO 05/20/23 05/20/23 rizatriptan 10 mg tablet mg PO 05/20/23 05/20/23 Previous Rx's ?Medication ?Instructions ?Recorded ibuprofen 800 mg tablet 800 mg PO Q8H 5 days #15 tabs 05/11/21 oseltamivir 75 mg capsule (Tamiflu) 75 mg PO BID 5 days #10 caps 10/26/23 penicillin V potassium 500 mg 500 mg PO TID 10 days #30 tabs 06/29/24 tablet prednisone 20 mg tablet 60 mg (3 x 20 mg) PO DAILY 5 days 06/29/24 #15 tabs Allergies Allergy/AdvReac Type Severity Reaction Status Date / Time No Known Allergies Allergy Verified 06/29/24 02:03 Review of Systems Review of Systems: Yes all other systems are reviewed and are negative PMF Past Medical History Medical History Carpal tunnel syndrome of right wrist Migraines GERD (gastroesophageal reflux disease) IBS (irritable bowel syndrome) Tachycardia Social History Social History Smoked in Last 30 Days: No Use of substances other than those prescribed or required for medical reasons: No Advance Directives: No Do you have a plan to hurt others: No Plan Current occupational status: employed 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[employer] Physical Exam Vital Signs: Vital Signs: Last Vital Signs Temp 98.0 F 06/29/24 04:00 Pulse 108 H 06/29/24 04:00 Resp 24 H 06/29/24 04:00 BP 109/76 06/29/24 04:00 Pulse Ox 98 06/29/24 04:00 O2 Del Method Room Air 06/29/24 04:00 BMI result Body Mass Index 32.2 Vital signs were normal Exam: General: Awake, alert in no distress Head: Normocephalic, atraumatic EENT: PERRL, Lids normal, sclera normal, conjunctiva normal, nose normal , ears normal, throat revealed posterior erythema with midline uvula, no asymmetric swelling, no trismus, bilateral exudates Neck: Supple, no adenopathy Lung: breath sounds symmetric, no wheezing, rales or rhonchi Chest: symmetric movement, nontender Heart: regular rate and rhythm, normal S1, S2 no murmurs or rubs Abdomen: soft, non-tender, nondistended, normal bowel sounds Medical Decision Making Medical Decision Making MDM Narrative: 38-year-old male who presents emergency department for evaluation of sore throat times 3 weeks, worse x3 days with episode of shortness of breath prior to coming to the emergency department. Vital signs were normal. Physical examination revealed posterior erythema with bilateral exudates, no trismus and a midline uvula. Differential diagnosis: ?Includes but is not limited to viral pharyngitis, streptococcal pharyngitis, parapharyngeal abscess, tonsillary abscess Course: 06:38 My interpretation patient's laboratory evaluation as follows: Rapid strep test was positive Patient's physical examination and findings are consistent with a streptococcal pharyngitis. Patient was given penicillin 500 mg orally and prednisone 60 mg orally here in the emergency department. He was prescribed penicillin 500 mg 3 times a day for 10 days and prednisone 60 mg once a day for 5 days. He was advised to take Tylenol for his pain. He was also advised to gargle with salt water 3 to 4 times a day. He was given printed and verbal instructions and discharged home. Admission/Observation Consideration of admission/observation: Escalation of care including admission/observation considered (No) Lab Data MDM Lab Attestation statement: I reviewed the patient's lab results. Labs: Lab Results 06/29/24 Range/Units 02:15 S. pyogenes GrpA TED Positive A (Negative) Prescription Management I considered prescription management with: Antibiotic (Penicillin) and Other (Anti-inflammatory steroids: Prednisone) Discharge Plan Discharge Clinical Impression: Acute streptococcal pharyngitis Patient Disposition: Home, Self-Care Instructions: Strep Throat (ED) Additional Instructions: Your strep throat test was positive Take penicillin 500 mg pills, 1 pill 3 times a day for 10 days. ?Finish the entire antibiotic prescription. Take prednisone 20 mg pills, 3 pills once a day for 5 days. While you ?are taking prednisone, do not take any NSAIDs (Motrin, Advil, ibuprofen, Aleve, naproxen). Take Tylenol (acetaminophen) 500 mg pills, 2 pills every 6 hours as needed for pain or fever. Gargle with salt water 4 times a day. Take 8 oz of warm water and put 1 tsp of salt in the glass, stirred up and gargle for 1 minute and spit the salt water out, do not swallow it. Follow-up with your doctor in 2 days. Please return to the emergency department if your symptoms get worse or if you develop any symptoms that are concerning to you. Prescriptions: New prednisone 20 mg tablet 60 mg PO DAILY 5 Days Qty: 15 0RF penicillin V potassium 500 mg tablet 500 mg PO TID 10 Days Qty: 30 0RF No Action ibuprofen 800 mg tablet 800 mg PO Q8H 5 Days Qty: 15 0RF oseltamivir [Tamiflu] 75 mg capsule 75 mg PO BID 5 Days Qty: 10 0RF naproxen 375 mg tablet PO omeprazole 20 mg capsule,delayed release(DR/EC) 20 mg PO DAILY promethazine 25 mg tablet PO amitriptyline 100 mg tablet 100 mg PO BEDTIME metoprolol succinate 50 mg tablet extended release 24 hr 50 mg PO DAILY rizatriptan 10 mg tablet PO gabapentin 300 mg capsule 300 mg PO DAILY Print Language: Chinese
[2024-06-29] MEDS: predniSONE 20 MG TABLET 60 MG PO (06:39)
[2024-06-29] MEDS: Penicillin V Potassium 250 MG TABLET 500 MG PO (06:40)
[2024-06-29 06:43] VITALS: BP 138/99; PULSE 99; RESP 20; TEMP 36.4; O2SAT 98
== END 2024-06-29 06:49 | disposition home or self-care (01) ==
PROVIDERS: Emergency Provider Emergency Medicine Emergency Medical Services; PCP Internal Medicine
DX: J02.0 Streptococcal pharyngitis (principal); R06.02 Shortness of breath; R13.10 Dysphagia, unspecified; Z79.899 Other long term (current) drug therapy
CPT/HCPCS: 87651; 99283; 99284

== ENCOUNTER 2025-06-24 12:27 | Emergency (ER) | payer OTHER, SELFPAY ==
--- NOTE | ~2025-06-24 | XR_ITS ---
CLINICAL HISTORY: knee pain. heard pop 4 views right knee Comparison: None Findings: No fractures or dislocations. No joint effusion. No significant arthritic change. No radiopaque foreign body. Impression: 1. Normal right knee This document has been electronically signed by: Monroe Branch MD on 06/24/2025 14:44:22
[2025-06-24 12:34] VITALS: BP 145/69; PULSE 100; RESP 18; TEMP 36.6; O2SAT 99; BMI 32.6
--- NOTE | 2025-06-24 12:36 | ED_ITS ---
HPI - General Adult General Chief complaint: Extremity Injury, Lower Stated complaint: R Knee Work Injury 06/24/25 Time Seen by Provider: 06/24/25 13:46 Source: patient Mode of arrival: ambulatory Limitations: no limitations History of Present Illness ED Provider: Mere Gardiner PA-C HPI narrative: This is a 39yo male who presents to the ED with right knee pain. He has a history of carpal tunnel syndrome, migraines, GERD, and IBS. 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 Denies popping, locking, or clicking sensation. He indicates that the pain is sharp and constant. Reports that the pain is worse with weight bearing. Location: right and lower extremity (knee) Quality: stabbing and sharp Related Data Home Medications ?Medication ?Instructions ?Recorded ?Confirmed gabapentin 300 mg capsule 300 mg PO DAILY 05/20/2301/05 metoprolol succinate 50 mg 50 mg PO DAILY 05/20/2301/05 tablet,extended release 24 hr naproxen 375 mg tablet mg PO 05/20/23 05/20/23 omeprazole 20 mg capsule,delayed 20 mg PO DAILY 05/20/23 release promethazine 25 mg tablet mg PO 05/20/23 05/20/23 rizatriptan 10 mg tablet mg PO 05/20/23 05/20/23 Previous Rx's ?Medication ?Instructions ?Recorded ibuprofen 800 mg tablet 800 mg PO Q8H 5 days #15 tab s 05/11/21 oseltamivir 75 mg capsule (Tamiflu) 75 mg PO BID 5 day s #10 caps 10/26/23 penicillin V potassium 500 mg 500 mg PO TID 10 days #3 0 tabs 06/29/24 tablet prednisone 20 mg tablet 60 mg (3 x 20 mg) PO DAILY 5 days 06/29/24 #15 tabs amitriptyline 100 mg tablet 100 mg PO BEDTIME 90 days #90 tabs 06/19/25 Allergies Allergy/AdvReac Type Severity Reaction Status Date / Time No Known Allergies Allergy Verified 06/24/25 12:37 Review of Systems Constitutional: Constitutional: Reports as per HPI Eyes: Eyes: Reports as per HPI ENT: Reports as per HPI Cardiovascular: Cardiovascular: Reports as per HPI Respiratory: Respiratory: Reports as per HPI Gastrointestinal: Gastrointestinal: Reports as per HPI Genitourinary: Genitourinary: Reports as per HPI Musculoskeletal: Musculoskeletal: Reports as per HPI Integumentary/Breasts: Skin/Breast: Reports as per HPI Neurologic: Reports as per HPI Psychiatric: Psychiatric: Reports as per HPI Endocrine: Endocrine: Reports as per HPI Hematologic/Lymphatic: Hematologic/Lymphatic: Reports as per HPI Allergic/Immunologic: Allergic/Immunologic: Reports as per HPI [facility] Past Medical History Attestation statement: The following information was validated with the patient. 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 ED Vital Signs: Vital Signs - 24 hr 06/24/25 12:34 06/24/25 13:47 06/24/25 15:28 Temperature 98 F 98.7 F 98.7 F Pulse Rate 100 105 H 99 Respiratory Rate 18 18 18 Blood Pressure 145/69 H 116/81 116/81 Pulse Oximetry 99 98 98 Oxygen Delivery Method Room Air Room Air Room Air BMI result Body Mass Index 32.6 Const General: cooperative, no acute distress, alert and awake Nutritional Appearance: well nourished Orientation/consciousness: patient oriented x3 HENMT Head: Yes normal to inspection and Yes atraumatic Ears: hearing grossly normal bilaterally and external ears normal General nose exam: Normal external nose present, no nasal discharge noted and no epistaxis Face and sinus: Yes normal facial exam, No abrasion and No laceration Mouth: Normal oral and palatal mucosa present, no drooling and no muffled voice Eyes General: appearance normal, both eyes and all related structures Periorbital: periorbital findings normal Eyelids: Yes eyelids normal Conjunctivae: conjunctivae normal Pupils: Equal, round and reactive pupils present EOM: EOMs intact bilaterally Neck Neck: Yes normal visual inspection and Yes full ROM Resp Effort & Inspection: normal respiratory effort and able to speak in complete sentences Neuro General: patient oriented x3, moves all extremities and CN's II-XI intact bilaterally Cranial nerves: Yes Equal, round and reactive pupils present Cognition (Neuro): normal cognition Extrem General: Yes normal to inspection, Yes full ROM and Yes capillary refill normal Right lower extremity: knee Details: normal to inspection, tenderness Location: of the medial joint line, normal ROM and knee ligament exam normal; no ecchymosis, no crepitus, no deformity and no unusual warmth Psych Appearance: grossly normal Mental Status: mental status grossly normal Affect: normal affect Attitude: cooperative Thought process: Normal thought process present Thought content: Normal thought content present Insight: Good insight present (Psych) Course Course Course Narrative: ANDRES; 39-year-old male presents to ED for right knee pain. 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 Patient denies any redness swelling or blunt trauma. X-ray ordered Medical Decision Making Medical Decision Making MDM Narrative: Patient is a 39 year old assigned male at with a history of carpal tunnel syndrome, migraines, GERD, and IBS presenting to the emergency department with right knee pain. Patient's physical exam was as noted in the physical exam portion of this note. Patient's right knee x-ray showed no acute process. I explained my physical exam findings as well as all test results to the patient. I answered all questions asked by the patient. Patient stated that he had issues with the right meniscus before and he is curious if this could be a flare of that again. I explained to the patient that it is possible and he should follow up with the orthopedic and work connection teams. I stressed the importance of the patient taking his medication as directed (either prescribed or as the over the counter packaging recommends). I stressed the importance of the patient following up with his primary care provider, the orthopedic team, and given this was a work place injury - work connection. I stressed the importance of the patient returning to the emergency department immediately if his symptoms were to worsen or if he were to develop any dizziness, shortness of breath, difficulty breathing, chest pain, blurry vision, loss of vision, nausea, vomiting, abdominal pain, fever, chills, back pain, or any other complaints. Patient verbalized agreement and understanding with this treatment plan and discharge. Differential Diagnosis Differential Diagnoses: The differential diagnosis associated with the presentation includes Right knee sprain Right knee strain Right meniscus injury Right patellar fracture Right ACL injury Admission/Observation Consideration of admission/observation: Escalation of care including admission/observation considered Patient would have been admitted to the hospital had his work up had any findings where hospital admission was appropriate and his clinical presentation warranted hospital admission. Independent Interpretation I performed an independent interpretation of an: Plain X-Ray Interpretation: My interpretation is in agreement with the radiologist's impression of this imaging study. Reason for Exam: knee pain. heard pop CLINICAL HISTORY: knee pain. heard pop 4 views right knee Comparison: None Findings: No fractures or dislocations. No joint effusion. No significant arthritic change. No radiopaque foreign body. Impression: 1. Normal right knee This document has been electronically signed by: Monroe Branch MD on 06/24/2025 14:44:22 Dictated By: Monroe Branch MD Signed By: Electronically signed by Monroe Branch MD 06/24/25 1445 Radiology Impression Discussion of test interpretation with radiology: I have reviewed the radiologist's reading. Discharge Plan Discharge Clinical Impression: Sprain of knee Patient Disposition: Home, Self-Care Instructions: Knee Sprain (DC) Additional Instructions: Your right knee x-ray showed no acute fracture / break. You should follow up with work connection given this was a work place injury and the orthopedic team for your right knee sprain. IF you are prescribed home medications and/or you are taking over the counter medications at home - it is very important you continue to do so as prescribed / directed unless told otherwise. Follow up with a primary care provider. Return to the emergency department immediately if your symptoms worsen or if you develop any numbness, tingling, dizziness, shortness of breath, difficulty breathing, chest pain, blurry vision, loss of vision, nausea, vomiting, abdominal pain, fever, chills, back pain, or any other complaints. Please see the information below about our Patient Portal. If you are not yet enrolled in the [facility] Patient Portal, you will receive an enrollment email invitation following your visit to any [facility] setting. You may also self-enroll in the Patient Portal by visiting our website: [email or web address] The following information is required to access the Patient Portal: - Your [facility] Medical Record Number - Your personal home email address (must match what is in your electronic medical record, Registration staff can assist with this) - Name - Date of Capabilities of the Patient Portal: - Message some providers - View upcoming appointments - Access your health summary, medical history, and visit history - View current conditions and allergies - View procedure and lab results - View your medications, including guidelines, side effects, and precautions - Complete pre-appointment questionnaires requested by your provider - Ready summary reports of your office visits and procedures To access the Patient Portal Mobile [employer], follow these directions: - Search [employer] in the [employer] Store or [employer] Store - Download the [employer] - Search for [facility] - Enter your login/password Prescriptions: No Action amitriptyline 100 mg tablet 100 mg PO BEDTIME 90 Days Qty: 90 0RF ibuprofen 800 mg tablet 800 mg PO Q8H 5 Days Qty: 15 0RF oseltamivir [Tamiflu] 75 mg capsule 75 mg PO BID 5 Days Qty: 10 0RF prednisone 20 mg tablet 60 mg PO DAILY 5 Days Qty: 15 0RF penicillin V potassium 500 mg tablet 500 mg PO TID 10 Days Qty: 30 0RF naproxen 375 mg tablet PO omeprazole 20 mg capsule,delayed release(DR/EC) 20 mg PO DAILY promethazine 25 mg tablet PO metoprolol succinate 50 mg tablet extended release 24 hr 50 mg PO DAILY rizatriptan 10 mg tablet PO gabapentin 300 mg capsule 300 mg PO DAILY Referrals: [facility] Orth[facility] Sur[facility] [Provider Group] Referral Note: Call to establish and follow up with the orthopedic team for your right knee sprain. [facility] [Provider Group] Referral Note: Call to establish and follow up with work connection given this was a work place injury. Mikel Rodriguez III, MD [Primary Care Provider, Medical] Stand Alone Forms: Work/School Release Interventions: ED Discharge Assessment Last Done: 06/24/25 15:28 Discharge Date/Time: 06/24/25 15:35 Print Language: Surinamese
[2025-06-24 13:47] VITALS: BP 116/81; PULSE 105; RESP 18; TEMP 37.1; O2SAT 98
--- OUTSIDE RECORDS SUMMARY | 2025-06-24 13:51 | XMS_ITS | Continuity of Care Document ---
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 - Start Flonase and saline. -Repeat PSG for snoring, we discussed the concerns of his untreated apnea which are related to cardiovascular system as well as memory. I do think he could benefit from surgery down the road to improve his CPAP tolerance, I did mention this did not fix his likely sleep apnea. -Allergy testing for AR -RV 1-2 months [email or web address] Not available 05/07/2025 14:54:19 Plan of Treatment Reminders Order Date Submit Date Provider Last Modified By Organization Details Last Modified Time Details Appointments Estab timmy d 15 2024 01:45P Orquidea Russo, DO Not available Not available Not available Lab None recor ded. Referral None recor ded. Procedures polys omnog jcarlos (PROC ) 2024 025 [email or web address], [address] [place], [address], 05/17/2025 10:50:31 aller gy testi mitch, skin prick (PROC ) 2024 025 [facility]), [address] [place], [address], 05/29/2025 04:15:25 intra derma l aller gy skin testi ng (PROC ) 2024 025 [facility]), [address] [place], [address], 05/29/2025 04:15:26 pulmo nary funct ion test proce dure (PROC ) 2024 025 [facility] ([facility]), [address] [place], [address], 05/29/2025 04:15:26 pulse oxime try (PROC ) 2024 025 [facility] ([facility] Adult), [address] [place], [address], 05/29/2025 04:15:26 Surgeries None recor ded. Imaging None recor ded. Medication Orders None recor ded. Patient TargetsNo targets recorded. Patient InstructionsNo instructions recorded. Reason for Referral None Reported. Problems Name Problem SNOMED Code Status Onset Date Resolution Date Notes Provider Name and Address Organization Details Recorded Time Snoring 27602818 Active 2024 Nico Russo [address], [address], [facility] [place] 14:47:51 Finding related to sleep 598537117 Active 2024 Nico Russo [address], [address], [facility] - [facility] [place] 14:47:53 Deviated nasal septum 462968551 Active 2024 Nico Russo [address] [place], [address], [facility] - [facility] 5 14:51:07 Allergic rhinitis 56950483 Active 2024 Nico Russo, [place] [address], [facility] [place], [address], [facility] - [facility] 5 16:15:43 Non-allerg ic rhinitis 810407508696 Active 2024 Nico Russo, [address] [address], [facility] [place], [address], [facility] - [facility] 5 14:51:31 Seasonal allergic rhinitis 513677009 Active 2024 Nico Russo, [address] [address], [facility] [place], [address], [facility] - [facility] 14:51:31 Problem Notes None recorded. Medical Equipment None Reported. Medications Name Sig Start Date Stop Date Status Note LastModified by Organization Details LastModified Time naproxen 375 mg tablet TAKE 1 TABLET BY MOUTH DAILY NEEDED FOR HEADACHE FOR 30 DAYS. active Not Available Not Available No t Available Lidocaine Viscous 2 % mucosal solution TAKE 5 ML (MUCOUS MEMBRANE) 2 TIMES PER DAY (PAIN) FOR 10 DAYS active Not Available Not Available Not Available metoprolol succinate ER 50 mg tablet,exten ded release 24 hr TAKE 1 TABLET BY MOUTH EVERY DAY active Not Available Not Available No t Available prednisone 20 mg tablet TAKE 3 TABLETS BY MOUTH DAILY FOR 5 DAYS active Not Available Not Available N ot Available sumatriptan 50 mg tablet TAKE 1 TABLET AT LEAST 2 HOURS BETWEEN DOSES NEEDED ORALLY ONCE A DAY 30 DAYS active Not Available Not Available No t Available penicillin V potassium 500 mg tablet TAKE 1 TABLET BY MOUTH THREE TIMES A DAY FOR 10 DAYS active Not Available Not Available Not Available omeprazole 20 mg capsule,jean yed release TAKE 1 CAPSULE BY MOUTH EVERY DAY active Not Available Not Available No t Available epinephrine 0.3 mg/0.3 mL injection, auto-injecto r INJECT 0.3 MG INTO THE MUSCLE NEEDED FOR ANAPHYLACTI C REACTION. 2-PACK. active Not Available Not Available No t Available amitriptylin e 100 mg tablet TAKE 1 TABLET BY MOUTH EVERYDAY AT BEDTIME active Not Available Not Available No t Available Vitals None Recorded Social History None recorded. Functional Status None recorded. Mental Status None recorded. Family History Nothing Reported. Medical History No medical history recorded. Past Encounters Encounter ID Performer Location Encounter Start Date Encounter Closed Date Diagnosis/Indication Diagnosis SNOMED-CT Code Diagnosis ICD10 Code Diagnosis IMO Codes Diagnosis Note [id number] Nico Russo DO [facility] [address] [place] [address] 05/07/2025 13:57:23 05/07/2025 14:55:52 Snoring 17789236 R06.83 68815 Finding re lated to sleep 684538497 G47.30 350462 Deviated nasal septum 12 1322240 J34.2 47391 Allergic rhinitis 889742 04 J30.9 7114456 Non-allergic rhinitis 31 82329460 01 J31.0 Seasonal a llergic rhinitis 293338097 J30.2 Health Concerns Section Related Observation LastModified by Organization Detai ls LastModified Time None Recorded Concern Status LastModified by Organization Details LastModified Time None Recorded Payers Encounter Date Sequence Insurance Name Policy Number Policy Smith Covered Member ID Smith Member ID Guarantor Name 05/07/2025 1 [facility] - HEALTH NET PLAN (MEDICAID HMO) JANE Farhad Woods [id number] Farhad Woods Notes Date Note Type Note Provider Name and Address Organization Details Recorded Time 05/07/2025 text/html ROS as noted in the HPI Patient presents for evaluation of snoring that started years ago. Snoring occurs nightly. Patient reports associated symptoms that are not improving, and include restless sleep, sore throat, daytime sleepiness, dry mouth, and choking and gasping. Mom and noted it. Sleep study years ago. Had previously tried a CPAP once but took it off immediately. He feels that he can barely breathe through his nose at baseline. He endorses chronic nasal congestion on the right greater than left that is progressed over years. He has previously tried some nasal sprays but but not consistently now. No recurring sinus infections. He does have a history of allergic rhinitis with itchy watery eyes and sneezing. This is also untreated. Nico Russo, [address] [address], [place], [address], [facility] - [facility] 05/07/2025 14:55:17
--- OUTSIDE RECORDS SUMMARY | 2025-06-24 13:51 | XMS_ITS | Data Portability ---
Author Organization [place] - [facility], Allergy Address [address] [address] Care Team Providers Care Corrosion Control Engineer Name Role Phone PRAVEEN ANDREWS Primary Care Provider Assessment Encounter Date Assessment Date Assessment LastModified [...] Appointments Estab timmy d 15 2024 01:45P M Nico Russo, DO Not available Not available Not available Lab None recor ded. Referral None recor ded. Procedures polys omnog jcarlos (PROC ) 2024 025 [email or web address] [facility], [address] [facility], [place], [address], 05/17/2025 10:50:31 aller gy testi mitch, skin prick (PROC ) 2024 025 [facility] ([facility]), [address] [place], [address], 05/29/2025 04:15:25 intra derma l aller gy skin testi ng (PROC ) 2024 025 [facility] [place] ([facility]), [address] [place], [address], 05/29/2025 04:15:26 pulmo nary funct ion test proce dure (PROC ) 2024 025 [facility] [place] ([facility]), [address] [place], [address], 05/29/2025 04:15:26 pulse oxime try (PROC ) 2024 025 [facility] [place] ([facility]), [address] [place], [address], 05/29/2025 04:15:26 Surgeries None recor ded. Imaging None recor ded. Medication Orders None recor ded. Patient TargetsNo targets recorded. Patient InstructionsNo instructions recorded. Reason for Referral None Reported. Results Created Date Observation Date Name Description Value Unit Range Abnormal Flag Note LastModifiedBy Organization Detail LastModifiedTime 05/29/2005/29/2025 ALLER GENS, ZONE 1 class description Commen t Level s of Speci fic IgE Class Descr iptio n of Class ----- ----- ----- ----- ----- -- ----- ----- ----- ----- ----- < 0.10 0 Negat cornelius 0.10 - 0.31 0/I Equiv ocal/ Low 0.32 - 0.55 I Low 0.56 - 1.40 II Moder ate 1.41 - 3.90 III High 3.91 - 19.00 IV Very High 19.01 - 100.0 0 V Very High >100. 00 Very High Not Available [facility] ([facility]) [address] [place], [address], 06/01/2025 02:16:47 05/29/2005/30/2025 ALLER GENS, ZONE 1 R814-EwI D pteronyssinu s 2.63 kU/L class III abnormal Not Available [facility] ([facility]) [address] [place], [address], 06/01/2025 02:16:47 05/29/2005/30/2025 ALLER GENS, ZONE 1 Z019-LnA D farinae 2.28 kU/L class III abnormal Not Available [facility] ([facility]) [address] [place], [address], 06/01/2025 02:16:47 05/29/2005/30/2025 ALLER GENS, ZONE 1 K648-EgT CAT dander 4.26 kU/L class IV abnormal Not Available [facility] ([facility]) [address] [place], [address], 06/01/2025 02:16:47 05/29/2005/30/2025 ALLER GENS, ZONE 1 T917-LtJ dog dander 0.99 kU/L class II abnormal Not Available [facility] ([facility]) [address] [place], [address], 06/01/2025 02:16:47 05/29/2005/30/2025 ALLER GENS, ZONE 1 z502-AaS bermuda grass <0.10 kU/L class 0 Not Available [facility] ([facility]) [address] [place], [address], 06/01/2025 02:16:47 05/29/2005/30/2025 ALLER GENS, ZONE 1 t133-RcL bluegrass, [place] <0.10 kU/L class 0 Not Available [facility] ([facility]) [address] [facility], [place], [address], 06/01/2025 02:16:47 05/29/2005/30/2025 ALLER GENS, ZONE 1 f773-DdM bahia grass 0.26 kU/L class 0/I abnormal Not Available [facility] ([facility]) [address] [place], [address], 06/01/2025 02:16:47 05/29/2005/30/2025 ALLER GENS, ZONE 1 K048-ZaM penicillium chrysogen <0.10 kU/L class 0 Not Available [facility] ([facility]) [address] [place], [address], 06/01/2025 02:16:47 05/29/2005/30/2025 ALLER GENS, ZONE 1 X138-NtZ cladosporium herbarum <0.10 kU/L class 0 Not Available [facility] ([facility]) [address] [place], [address], 06/01/2025 02:16:47 05/29/2005/30/2025 ALLER GENS, ZONE 1 T606-UsI aspergillus fumigatus <0.10 kU/L class 0 Not Available [facility] ([facility]) [address] [place], [address], 06/01/2025 02:16:47 05/29/2005/30/2025 ALLER GENS, ZONE 1 W008-AoA mucor racemosus <0.10 kU/L class 0 Not Available [facility] ([facility]) [address] [place], [address], 06/01/2025 02:16:47 05/29/2005/30/2025 ALLER GENS, ZONE 1 E196-YkQ alternaria alternata <0.10 kU/L class 0 Not Available [facility] ([facility]) [address] [facility], [place], [address], 06/01/2025 02:16:47 05/29/2005/30/2025 ALLER GENS, ZONE 1 F671-UqQ stemphylium herbarum <0.10 kU/L class 0 Not Available [facility] ([facility]) [address] [facility], [place], [address], 06/01/2025 02:16:47 05/29/2005/30/2025 ALLER GENS, ZONE 1 J904-VdW common silver birch <0.10 kU/L class 0 Not Available [facility] ([facility]) [address] [facility], [place], [address], 06/01/2025 02:16:47 05/29/2005/30/2025 ALLER GENS, ZONE 1 M604-YkN oak, white 0.28 kU/L class 0/I abnormal Not Available [facility] ([facility]) [address] [facility], [place], [address], 06/01/2025 02:16:47 05/29/2005/30/2025 ALLER GENS, ZONE 1 F684-OuT elm, kittitian 0.16 kU/L class 0/I abnormal Not Available [facility] ([facility]) [address] [facility], [place], [address], 06/01/2025 02:16:47 05/29/2005/30/2025 ALLER GENS, ZONE 1 G544-ClE wendi, white 0.28 kU/L class 0/I abnormal Not Available [facility] ([facility]) [address] [place], [address], 06/01/2025 02:16:47 05/29/2005/30/2025 ALLER GENS, ZONE 1 Q833-FuH hazelnut tree <0.10 kU/L class 0 Not Available [facility] ([facility]) [address] [facility], [place], [address], 06/01/2025 02:16:47 05/29/2005/30/2025 ALLER GENS, ZONE 1 M431-AiM hickory, white <0.10 kU/L class 0 Not Available [facility] ([facility]) [address] [facility], [place], [address], 06/01/2025 02:16:47 05/29/2005/30/2025 ALLER GENS, ZONE 1 K185-MjK white mulberry <0.10 kU/L class 0 Not Available [facility] ([facility]) [address] [facility], [place], [address], 06/01/2025 02:16:47 05/29/2005/30/2025 ALLER GENS, ZONE 1 N572-MlA ragweed, short 0.48 kU/L class I abnormal Not Available [facility] ([facility]) [address] [facility], [place], [address], 06/01/2025 02:16:47 05/29/2005/30/2025 ALLER GENS, ZONE 1 F349-KqA mugwort <0.10 kU/L class 0 Not Available [facility] ([facility]) [address] [facility], [place], [address], 06/01/2025 02:16:47 05/29/2005/30/2025 ALLER GENS, ZONE 1 A902-WyA plantain, maori <0.10 kU/L class 0 Not Available [facility] ([facility]) [address] [facility], [place], [address], 06/01/2025 02:16:47 05/29/2005/30/2025 ALLER GENS, ZONE 1 F954-JsN sheep sorrel <0.10 kU/L class 0 Not Available [facility] ([facility]) [address] [facility], [place], [address], 06/01/2025 02:16:47 05/29/2005/30/2025 ALLER GENS, ZONE 1 G993-QrP nettle 0.14 kU/L class 0/I abnormal Not Available [facility] ([facility]) [address] [facility], [place], [address], 06/01/2025 02:16:47 05/29/2006/01/2025 ALLER GENS, ZONE 1 K618-JhT cockroach, kittitian 4.69 kU/L class IV abnormal Not Available [facility] ([facility]) [address] [place], [address], 06/01/2025 02:16:47 05/29/2006/01/2025 ALLER GENS, ZONE 1 K043-XnI maple/box elder 0.21 kU/L class 0/I abnormal Not Available [facility] ([facility]) [address] [place], [address], 06/01/2025 02:16:47 05/29/2006/01/2025 ALLER GENS, ZONE 1 H388-SpY cedar, mountain <0.10 kU/L class 0 Not Available [facility] ([facility]) [address] [place], [address], 06/01/2025 02:16:47 05/29/2006/01/2025 ALLER GENS, ZONE 1 C763-LbX pigweed, common <0.10 kU/L class 0 Not Available [facility] ([facility]) [address] [place], [address], 06/01/2025 02:16:47 05/29/2005/30/2025 IMMUN OGLOB ULIN E, TOTAL immunoglobul in E, total 404 IU/mL 6-495 Not Available [facility] ([facility]) [address] [place], [address], 06/01/2025 02:16:48 Result Notes None recorded. Problems Name Problem SNOMED Code Status Onset Date Resolution Date Notes Provider Name and Address Organization Details Recorded Time Snoring 80948548 [facility] [address] Nico Russo [address] [address], [place], [address], [facility] - [facility] 14:47:51 Finding related to sleep 788231982 [facility] [address]ico Rus[address] [address], [place], [address], [facility] - [facility] 14:47:53 Deviated nasal septum 063885568 [facility] [address] [address], [place], [address], [facility] - [facility] 14:51:07 Allergic rhinitis 41232769 [facility] [address] [address], [place], [address], [facility] - [facility] 16:15:43 Non-allerg ic rhinitis 561866990649 [facility] [address] [address], [place], [address], [facility] - [facility] 14:51:31 Seasonal allergic rhinitis 406321891 [facility] [address] [address], [place], [address], [facility] - [facility] 14:51:31 Problem Notes None recorded. Medical [...] ICD10 Code Diagnosis IMO Codes Diagnosis Note [id number] Nico Russo DO [facility] of [address] [address] 05/07/2025 13:57:23 05/07/2025 14:55:52 Snoring 67274350 R06.83 17065 Finding re lated to sleep 284998896 G47.30 646447 Deviated nasal septum 12 7629565 J34.2 53322 Allergic rhinitis 499531 04 J30.9 8646232 Non-allergic rhinitis 31 06941352 01 J31.0 Seasonal a llergic rhinitis 597494596 J30.2 Health Concerns Section Related Observation LastModified by Organization Detai ls LastModified Time None Recorded Concern Status LastModified by Organization Details LastModified Time None Recorded Advance Directives Directive None Recorded Payers Insurance Date Sequence Insurance Name Policy Number Policy Smith Covered Member ID Smith Member ID Guarantor Name 05/15/2025 1 [facility] - HEALTH NET PLAN (MEDICAID HMO) JANE Woods [id number] Farhad Woods Notes Date Note Type Note [...] This is also untreated. Nico Russo, [address] [facility],[address] [address], [place], [address], [facility] - [facility] 05/07/2025 14:55:17
--- OUTSIDE RECORDS SUMMARY | 2025-06-24 13:51 | XMS_ITS | Clinical Summary ---
Author Organization [facility] [address] [facility] Address [address] [place] [phone] Phone Care Team Providers Care Counter Maker Name Role Phone Mikel Rodriguez MD Primary Care Provider [phone] Allergies Active Allergy Reactions Criticality Noted Date Comments Other 10/14/2016 Allergies all yr round Medications EPINEPHrine (EpiPen 2-Michelet) 0.3 mg/0.3 mL injection Inject 0.3 mg into the muscle as needed for Other (anaphylactic reaction). 2-pack. Fill with whichever brand is covered by insurance. 4 Active cetirizine (ZyrTEC) 10 mg tablet Take 1 tablet (10 mg total) by mouth 1 (one) time each day. 2 Active ibuprofen (ADVIL,MOTRIN) 800 mg tablet Take 1 tablet by mouth every 8 hours as needed for Pain. 2 Active cyclobenzaprine (FLEXERIL) 5 mg tablet Take 1 tablet by mouth at bedtime. 2 Active naproxen (NAPROSYN) 500 mg tablet TAKE 1 TABLET BY MOUTH TWICE DAILY WITH MEALS 0 Active amitriptyline (ELAVIL) 100 mg tablet Take 100 mg by mouth at bedtime. Active prochlorperazin e (COMPAZINE) 10 mg tablet Take 10 mg by mouth as needed. Headaches Active rizatriptan (MAXALT) 10 mg tablet Take 30 mg by mouth as needed. May repeat in 2 hours if needed Active metoprolol succinate (TOPROL-XL) 50 mg 24 hr tablet TAKE 1 TABLET BY MOUTH EVERY DAY. 90 tablet 1 5 Active omeprazole (PriLOSEC) [address] capsule TAKE 1 CAPSULE BY MOUTH EVERY DAY 90 capsule 1 5 Active Active Problems Problem Noted Date Diagnosed Date Hyperlipidemia 02/13/2021 Obstructive sleep apnea 03/01/2019 Overview (06/26/2024): [facility] Home Sleep Apnea Test: Date 02/28/2019; Wt 196#; BMI 29; RON 6, AI 7; HI 5; Unclassified apneas 2; Obstructive apneas 1; Central apneas 0; Mixed apneas 0; hypopneas 27; average oxygen saturation 93% (lowest 77% without saturations <88% for 5% or more of study) - Obstructive Sleep Apnea - mild; mostly hypopneas; without sleep related hypoventilation by 2018 home sleep apnea test. Hepatic steatosis 01/18/2018 GERD (gastroesophageal reflux disease) 6 Overview (06/26/2024): Follows with gastroenterology. Sinus tachycardia 12/24/2015 Overview (06/26/2024): Follows with cardiology. Stress Test 2012: 12.8 mets Holter 2013 86% sinus tach. Echo 2013 EF 45 to 50%. Echo 2013 showed EF of 60%. Echo 2016 EF 50% Echo 2019: EF 55% No other abnormalities. Echo 2020: EF 60% No other abnormailties or changes. UARS (upper airway resistance syndrome) 07/31/20 14 Dyspnea on exertion 04/19/2014 IBS (irritable bowel syndrome) 11/14/2013 Migraine 05/05/2013 Overview (06/26/2024): Follows with neurology, Dr. Blandon. Encounters Date Type Department Care Team Description 05/18/2025 10:20 AM EDT Office Visit [facility] [address] [place] [address] Javad Cardona MD Sinus tachycardia (Primary Dx) from Last 3 Months Immunizations Immunization Administration Dates Next Due Influenza Quadravalent, MDCK , 0.5ml, with preservative (Flucelvax) 6mo and older 05/12/2017 Influenza trivalent, with pr eservative (Fluzone; Afluria) 6mo and older 06/13/2015 PPD Test 07/24/2013 [employer] SARS-CoV-2 COVID-19, mRNA, LNP-S, preservative free 12/22/2020,12/01/2020 Tdap Tetanus diptheria acell ular pertussis (Boostrix; Adacel) 7yo and older 01/27/2024,07/24/2013 Surgical History Surgery Date Site/Laterality Comments HERNIA REPAIR 12/15/12 PROCEDURE: REPAIR INGUINAL HERNIA HERNIA REPAIR 12/15/12 PROCEDURE: REPAIR UMBILICAL HERNIA COLONOSCOPY 10/02/13 PROCEDURE: HISTORICAL COLONOSCOPY; COMMENT: normal (hemorrhoids), with normal biopsies Medical History Medical History Date Comments Bilateral inguinal hernia 09/30/2012 DX:Don ateral inguinal hernia Umbilical hernia 09/30/2012 DX:Umbilical he rnia Migraine 05/05/2013 DX:Migraine; COM MENT: follows with Dr blandon IBS (irritable bowel syndrome) 11/14/2013 D X:IBS (irritable bowel syndrome) GERD (gastroesophageal reflux disease) 03/04/2016 DX:GERD (gastroesophageal reflux disease) Family History Medical History Relation Name Comments Cataracts Father Heart failure Father Sleep apnea Father Blindness Neg Hx Glaucoma Neg Hx Macular degeneration Neg Hx Strabismus Neg Hx Relation Name Status Comments Brother 1 Alive Brother 2 Alive Brother 3 Alive Brother 4 Alive migraines Father CAD and 2 MT, D M and HTN, COPD Mother Alive DM and thyroid problems, renal stones Sister Alive Social History Tobacco Use Types Packs/Day Years Used Date Smoking Tobacco: Never Smokeless Tobacco: Never Tobacco Cessation:Counseling Given: Not Answered Alcohol Use Standard Drinks/Week Comments Not Currently 0 (1 standard drink = 0.6 oz pur e alcohol) Sex and Gender Information Value Date Recorded Sex Assigned at Not on file Legal Sex Male 2:10 PM EST Gender Identity Not on file Sexual Orientation Not on file 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 Not on file Not on file Not o n file Obstetrics History Last Filed Vital Signs Vital Sign Reading Time Taken Comments Blood Pressure 122/84 05/18/2025 10:16 AM EDT Pulse 87 05/18/2025 10:16 AM EDT Temperature 36.1 C (97 F) 03/01/2025 1:42 PM EDT Respiratory Rate 16 03/01/2025 1:42 PM EDT Oxygen Saturation 97% 05/18/2025 10:16 AM EDT Inhaled Oxygen Concentration - - Weight 99.3 kg (219 lb) 05/18/2025 10:16 AM EDT Height 175.3 cm (5' 9 ) 05/18/2025 10:16 AM EDT Body Mass Index 32.34 05/18/2025 10:16 AM EDT Plan of Treatment Upcoming Encounters Date Type Department Care Team (Late st Contact Info) Description 07/30/2025 9:30 AM EST Office Visit Adult Medicine [address] [phone] Mikel Rodriguez MD [address] [place] [address] 03/04/2026 4:00 PM EDT Office Visit Adult Medicine [address] [phone] Mikel Rodriguez MD [address] [place] [address] Health Maintenance Due Date Last Done Comments Hepatitis B Vaccines (1 of 3 - 19+ 3-dose series) 11/04/2003 HPV Vaccines (1 - 3-dose SCD M series) 11/04/2011 Social Influencers of Health Screening 07/25/2022 Depression Screening 08/16/2024 01/27/2024 COVID-19 Vaccine (3 - 2024-2 6 season) 2025 12/22/2020, 12/01/2020 Influenza Vaccine (#1) 2025 7, 06/13/2015 Cholesterol Screening (Lipid Panel) 03/01/2030 03/01/2025, 01/27/2024, 01/27/2024 DTaP,Tdap,and Td Vaccines (3 - Td or Tdap) 01/26/2034 01/27/2024, 07/24/2013 RSV Immunization Adult Patients (1 - 1-dose 75+ series) 11/04/2059 HIV Screening Completed 12/12/2014 Hepatitis C Screening Completed 12/12/2014 HIB Vaccines Aged Out No longer eligi ble based on patient's age to complete this topic Hepatitis A Vaccines Aged Out No long er eligible based on patient's age to complete this topic IPV Vaccines Aged Out No longer eligi ble based on patient's age to complete this topic MMR Vaccines Aged Out No longer eligi ble based on patient's age to complete this topic Meningococcal ACWY Vaccine Aged Out N o longer eligible based on patient's age to complete this topic Meningococcal B Vaccine Aged Out No l onger eligible based on patient's age to complete this topic Pneumococcal Vaccine: Pediatrics (0 to 5 Years) and At-Risk Patients (6 to 49 Years) Aged Out No longer eligible b ased on patient's age to complete this topic RSV Immunization Patients Under 20 months Aged Out No longer eligible b ased on patient's age to complete this topic Varicella Vaccines Aged Out No longer eligible based on patient's age to complete this topic Procedures Procedure Name Priority Date/Time Associated Diagnosis Comments ECG 12-LEAD Routine 05/18/2025 10:21 AM EDT Sinus tachycardia LIPID PANEL WITH REFLEX TO DIRECT LDL Routine 03/01/2025 2:57 PM EDT Routine history and physical examination of adult DEPRESSION SCREENING Routine 01/27/2024 HEPATITIS C SCREENING Routine 12/12/2014 HIV SCREENING Routine 12/12/2014 from Last 3 Months or Most Recently Relevant to Health Maintenance Results * ECG 12 lead (05/18/2025 10:21 AM EDT) Ventricular Rate ECG 87 BPM GEMUSE Atrial Rate 87 BPM GEMUSE P-R Interval 136 ms GEMUSE QRS Duration 72 ms GEMUSE Q-T Interval 336 ms GEMUSE QTc 404 ms GEMUSE P Wave [place] 49 degrees GEMUSE R [place] 51 degrees GEMUSE T [place] 25 degrees GEMUSE ECG Interpretation Normal sinus rhythm with sinus arrhythmia Normal ECG No previous ECGs available same as 2020 Confirmed by Idania CARDONA JAY ([id number]) on 05/18/2025 10:41:44 AM GEMUSE 05/18/2025 10:2 1 AM EDT 05/18/2025 10:41 AM EDT Javad Cardona MD ECG ORDERABLES Final Result GEMULISES * (ABNORMAL) Lipid panel with reflex to direct LDL (03/01/2025 2:57 PM EDT) Cholesterol 186 0 - 200 mg/dL LAB CHEMISTRY METHOD 03/01/2025 6:57 PM EDT [facility] Triglycerides 322(H) 0 - 150 mg/dL LAB CHEMISTRY METHOD 03/01/2025 6:57 PM EDT [facility] HDL 38(L) >=40 mg/dL LAB CHEMISTRY METHOD 03/01/2025 6:57 PM EDT [facility] LDL Calculated 84 0 - 100 mg/dL LAB CHEMISTRY METHOD 03/01/2025 6:57 PM EDT [facility] VLDL Cholesterol Michael 64.4 mg/dL LAB CHEMISTRY METHOD 03/01/2025 6:57 PM EDT [facility] Non HDL Chol. (LDL+VLDL) 148(H) <145 mg/dL LAB CHEMISTRY METHOD 03/01/2025 6:57 PM EDT [facility] Chol/HDL Ratio 4.9(H) 0.0 - 4.4 LAB CHEMISTRY METHOD 03/01/2025 6:57 PM EDT [facility] Blood Venous blood specimen / Unknown Venipuncture / Unknown 03/01/2025 2:57 PM EDT 03/01/2025 2:57 PM EDT Benjie BARRETO LAB BLOOD ORDERABLES Fi nal Result [facility] ([facility] [address] [place] [address], * Depression Screening (01/27/2024) Depression Screening abstracted Historical Provider HEALTH MAINTENANCE Final Result * HIV Screening (12/12/2014) HIV Screening abstracted Historical Provider HEALTH MAINTENANCE Final Result * Hepatitis C Screening (12/12/2014) Hepatitis C Screening abstracted Historical Provider HEALTH MAINTENANCE Final Result from Last 3 Months or Most Recently Relevant to Health Maintenance Insurance [facility] [employer] Care Teams Counter Maker Relationship Specialty Start Date End Date Mikel Rodriguez MD [address] [place] [phone] PCP - General Internal Medicine 09/05/15
--- OUTSIDE RECORDS SUMMARY | 2025-06-24 13:51 | XMS_ITS ---
Author Name [facility] Organization Unknown Care Team Organization Name Specialty Phone Email Start Date End Da te [facility] PRAVEEN ANDREWS Primary Care 06/23/2022
[2025-06-24 15:28] VITALS: BP 116/81; PULSE 99; RESP 18; TEMP 37.1; O2SAT 98
== END 2025-06-24 15:35 | disposition home or self-care (01) ==
PROVIDERS: Emergency Provider Emergency Medicine Emergency Medical Services; PCP Internal Medicine
DX: S83.91XA Sprain of unspecified site of right knee, initial encounter (principal); M25.561 Pain in right knee; X58.XXXA Exposure to other specified factors, initial encounter; Y93.9 Activity, unspecified; Y92.9 Unspecified place or not applicable; Y99.8 Other external cause status; Z79.899 Other long term (current) drug therapy
CPT/HCPCS: 73564; 99283; 99284

== ENCOUNTER → 2025-06-24 12:36 | Outpatient (BNV) | payer OTHER, SELFPAY | PROVIDERS: PCP Internal Medicine; Visit Provider Radiology Diagnostic Radiology | DX: M25.561 Pain in right knee (principal) | CPT/HCPCS: 73564 ==